=== PATIENT | female | born 1965 | race Caucasian/White ===

== ENCOUNTER 2022-07-12 10:04 | Emergency (ER) | payer OTHER ==
[~2022-07-12] VITALS: Ht 157.5 cm; Wt 93.4 kg
--- OUTSIDE RECORDS SUMMARY | 2022-07-12 10:44 | XMS ---
PreManage Notification: CANDIS MARTINEZ Security Crossing [place] Events No recent Security Events currently on file CRITERIA MET - [facility] - 2 Visits in 30 Days CARE PROVIDERS LELO ALVARADO Physician Change Coordinator Current PHONE: Unknown Kin has no Care Guidelines for this patient. E.D. VISIT COUNT (12 MO.) [address] TOTAL 4 NOTE: Visits indicate total known visits. ED/UCC VISIT TRACKING (12 MO.) 07/12/2022 10:04 [facility] [place] TYPE: Emergency COMPLAINT: - KNEE PAIN 07/03/2022 22:38 [facility] [place] TYPE: Emergency DIAGNOSES: - Pain in right knee - Pain in left knee - Myalgia, unspecified site - WEAKNESS 06/18/2022 11:32 [facility] [place] TYPE: Emergency DIAGNOSES: - LEFT LEG MUSCLE CRAMPS - Other muscle spasm 06/08/2022 12:00 [facility] [place] TYPE: Emergency DIAGNOSES: - L KNEE AND HIP PAIN - Pain in left knee INPATIENT VISIT TRACKING (12 MO.) No inpatient visits to display in this time frame [email or web address]
[2022-07-12] MEDS ORDERED: METOPROLOL TART50 MG PO (11:05)
[2022-07-12] MEDS ORDERED: LISINOPRIL20 MG PO (11:05)
[2022-07-12] MEDS ORDERED: ALLOPURINOL100 MG PO (11:05)
[2022-07-12] MEDS ORDERED: SIMVASTATIN20 MG PO (11:05)
[2022-07-12] MEDS ORDERED: HYDROCHLOROTHIA25 MG PO (11:05)
[2022-07-12] MEDS ORDERED: AMLODIPINE BESY10 MG PO (11:05)
[2022-07-12] MEDS ORDERED: ZANAFLEX4 MG PO (11:06)
[2022-07-12] MEDS ORDERED: TART CHERRY E1000 MG PO (11:06)
[2022-07-12] MEDS ORDERED: DAILY VALUE1 EACH PO (11:07)
[2022-07-12] MEDS ORDERED: MAGNESIUM400 M1 PO (11:07)
[2022-07-12] MEDS ORDERED: OMEGA 3 1,0001 EACH PO (11:08)
[2022-07-12] MEDS ORDERED: VITAMIN D250 MCG PO (11:08)
[2022-07-12] MEDS ORDERED: CALCIUM + D3 E1 EACH PO (11:09)
[2022-07-12] MEDS ORDERED: HYDROCODON-ACE1 EA11 PO (13:41)
== END 2022-07-12 14:19 | disposition home or self-care (01) ==
LOC: ED 10:04
DX: M16.0 Bilateral primary osteoarthritis of hip (principal); M17.0 Bilateral primary osteoarthritis of knee; I10 Essential (primary) hypertension; E78.00 Pure hypercholesterolemia, unspecified; Z79.899 Other long term (current) drug therapy
CPT/HCPCS: 72170; 73560; 96374; 96376; 99283-25; J3010

== ENCOUNTER 2023-12-26 13:09 | Emergency (ER) | payer OTHER ==
[~2023-12-26] VITALS: Ht 157.5 cm; Wt 105.3 kg
[~2023-12-26 13:09] MED LIST: ALLOPURINOL100 MG PO; AMLODIPINE BESY10 MG PO; CALCIUM + D3 E1 EACH PO; DAILY VALUE1 EACH PO; HYDROCHLOROTHIA25 MG PO; HYDROCODON-ACE1 EA11 PO; LISINOPRIL20 MG PO; MAGNESIUM400 M1 PO; METOPROLOL TART50 MG PO; OMEGA 3 1,0001 EACH PO; SIMVASTATIN20 MG PO; TART CHERRY E1000 MG PO; VITAMIN D250 MCG PO; ZANAFLEX4 MG PO
[2023-12-26] MEDS ORDERED: fentaNYL citrate 100 MCG/2 ML VIAL IV PRN (13:30)
[2023-12-26] MEDS ORDERED: KETOROLAC TROMETHAMINE 30 MG/ML VIAL IV ONE (13:30)
[2023-12-26 13:42] LABS: BASOPHILS 0.9 % (0-2); EOSINOPHILS 1.4 % (0-6); HEMATOCRIT 37.8 % (35.0-50.0); HEMOGLOBIN 12.9 g/dL (12.0-18.0); LYMPHOCYTES 9.4 % (24-44); MCH 32.4 (27-36); MCV 95.1 fl (81-99); NEUTROPHILS 80.3 % (39-80); PLATELET COUNT 432 K/uL (140-440); RBC 3.97 M/ul (4.3-5.7); RDW 13.2 (10.5-15.0)
[2023-12-26 13:57] LABS: ALBUMIN 3.8 g/dL (3.4-5.0); ALBUMIN/GLOBULIN RATIO 0.95 (1.1-2.4); ANION GAP 16.9 (7-21); BILIRUBIN, TOTAL 0.6 ng/dL (0.2-1.0); BUN/CREATININE RATIO 23.37 (6.0-28.6); CALCIUM 9.5 mg/dL (8.5-10.1); CREATININE, SERUM 1.54 mg/dL (0.55-1.02); POTASSIUM 3.9 mmol/L (3.5-5.1); PROTEIN, TOTAL 7.8 g/dL (6.4-8.2)
[2023-12-26] MEDS ORDERED: SODIUM CHLORIDE 0.9% 1,000 ML IV ONE (15:00)
[2023-12-26] MEDS ORDERED: Ropivacaine HCl 0.5% 30 ML VIAL ONE (15:11)
[2023-12-26] MEDS ORDERED: LIDOCAINE HCL 2% 5 ML SDV ONE (15:11)
[2023-12-26] MEDS ORDERED: DEXAMETHASONE SOD PHOS 4 MG/ML VIAL ONE (15:11)
[2023-12-26] MEDS ORDERED: SODIUM CHLORIDE 0.9% 20 ML IV ONE (15:11)
[2023-12-26] MEDS ORDERED: dexmedeTOMIDine HCl 200 MCG/2 ML VIAL ONE (15:11)
[2023-12-26] MEDS ORDERED: ondansetron HCL 4 MG/2 ML VIAL IV PRN (15:15)
[2023-12-26] MEDS ORDERED: LIDOCAINE 2% VISCOUS 6 ML SYR TOP ONE (15:15)
[2023-12-26] MEDS ORDERED: MAGNESIUM HYDROXIDE 30 ML UDC PO PRN (15:15)
[2023-12-26] MEDS ORDERED: METOPROLOL TARTRATE 50 MG TAB PO SCH (15:15)
[2023-12-26] MEDS ORDERED: ACETAMINOPHEN 500 MG TAB PO PRN (15:15)
[2023-12-26] MEDS ORDERED: METOPROLOL SUCCINATE 50 MG TABCR PO ONE (15:30)
[2023-12-26] MEDS ORDERED: HYDROCODON-ACE1 EA11 PO (17:55)
[2023-12-26] MEDS ORDERED: HYDROCODONE BIT/ACETAMINOPHEN 5/325 MG 1 TAB HOME.PACK PO ONE (18:00)
[2023-12-26 19:11] VITALS: BP 131/69
[2023-12-26] MEDS ORDERED: ATORVASTATIN 10 MG TAB PO SCH (21:00)
[2023-12-26] MEDS ORDERED: MELATONIN 3 MG TAB PO PRN (21:00)
--- NOTE | 2023-12-27 07:12 | EKG ---
[facility] [address] [place] [address] Signed Sinus tachycardia with premature atrial complexes Low voltage QRS Inferior infarct , age undetermined Possible Anterolateral infarct , age undetermined Abnormal ECG No previous ECGs available Confirmed by London Zamarripa ([id number]) on 12/27/2023 7:12:35 AM Electronically Signed By: LONDON ZAMARRIPA MD 12/27/23711 PATIENT NAME: CANDIS MARTINEZ Electrocardiogram DATE OF : 65 PHYSICIAN: LONDON ZAMARRIPA MD REPORT #: [id number] REPORT IS CONFIDENTIAL AND NOT TO BE RELEASED WITHOUT AUTHORIZATION
[2023-12-27] MEDS ORDERED: lisinopriL 20 MG TAB PO SCH (09:00)
[2023-12-27] MEDS ORDERED: hydroCHLOROthiazide 25 MG TAB PO SCH (09:00)
[2023-12-27] MEDS ORDERED: PHARMACY RENAL DOSE ADJUSTMENT 1 DOSE MISC PO SCH (12:00)
== END 2023-12-26 20:14 | disposition home or self-care (01) ==
LOC: ED 13:09 → MS 15:04 → ED 15:04
PROVIDERS: Emergency Medicine
DX: M16.0 Bilateral primary osteoarthritis of hip (principal); L89.309 Pressure ulcer of unspecified buttock, unspecified stage; L89.899 Pressure ulcer of other site, unspecified stage; S72.012A Unspecified intracapsular fracture of left femur, initial encounter for closed fracture; R00.0 Tachycardia, unspecified; G89.29 Other chronic pain; I10 Essential (primary) hypertension; E78.00 Pure hypercholesterolemia, unspecified; Z79.899 Other long term (current) drug therapy; W19.XXXA Unspecified fall, initial encounter
CPT/HCPCS: 36415; 70450; 71045; 72192; 73502; 73560; 80053; 85025; 93005; 93010; 96374; 96376; 99284-25; A9270; J1100; J1885; J2001; J2795; J3010; J7030

== ENCOUNTER 2023-12-28 19:26 | Inpatient (IN) | payer OTHER ==
[~2023-12-28] VITALS: Ht 160 cm; Wt 105.0 kg
--- OUTSIDE RECORDS SUMMARY | 2023-12-28 19:28 | XMS ---
PreManage Notification: CANDIS MARTINEZ Security Loan Funder Events No recent Security Events currently on file CRITERIA MET - [facility] - 2 Visits in 30 Days CARE PROVIDERS HEATHER GALVEZ Community Health Worker 02/16/2023-Current PHONE: [phone] -Ganesh DMD Dentist: Automatic Paint Sprayer Operator Current PHONE: [phone] LELO ALVARADO Physician Overlock Collar Setter Current PHONE: Unknown [facility]: [facility] Qualified [facility] ([facility]) [facility] PHONE: [phone] Kin has no Care Guidelines for this patient. [place] VISIT COUNT (12 MO.) 2 [facility] TOTAL 3 NOTE: Visits indicate total known visits. ED/UCC VISIT TRACKING (12 MO.) 12/28/2023 19:27 [facility] [place] TYPE: Emergency COMPLAINT: - WEAKNESS 12/26/2023 13:09 [facility] [place] TYPE: Emergency COMPLAINT: - L FEMUR FX 01/22/2023 14:32 [facility] OR TYPE: Emergency COMPLAINT: - UPPER ABD PAIN DIAGNOSES: - UPPER ABD PAIN INPATIENT VISIT TRACKING (12 MO.) 12/26/2023 15:04 [facility] [place] TYPE: Medical Surgical COMPLAINT: - L FEMUR FX [id number]
[2023-12-28] MEDS ORDERED: LACTATED RINGER'S 1,000 ML IV ONE (20:15)
[2023-12-28 20:43] LABS: BASOPHILS 0.6 % (0-2); EOSINOPHILS 0.6 % (0-6); HEMATOCRIT 38.7 % (35.0-50.0); HEMOGLOBIN 12.6 g/dL (12.0-18.0); MCH 31.1 (27-36); MCHC 32.6 g/dl (30-36); MCV 95.3 fl (81-99); NEUTROPHILS 85.8 % (39-80); PLATELET COUNT 441 K/uL (140-440); RBC 4.06 M/ul (4.3-5.7); RDW 13.2 (10.5-15.0)
[2023-12-28 20:54] LABS: BILIRUBIN, URINE NEGATIVE (negative); BLOOD/HGB, URINE TRACE-I (Negative); KETONE, URINE TRACE (Negative); LEUK ESTERASE, URINE NEGATIVE (negative); NITRITE, URINE NEGATIVE (negative); PH, URINE 5.5 (5-7)
[2023-12-28 20:58] LABS: ALBUMIN 3.7 g/dL (3.4-5.0); ALBUMIN/GLOBULIN RATIO 0.88 (1.1-2.4); ANION GAP 19.2 (7-21); BILIRUBIN, TOTAL 0.9 ng/dL (0.2-1.0); CALCIUM 9.9 mg/dL (8.5-10.1); CREATININE, SERUM 1.2 mg/dL (0.55-1.02); POTASSIUM 4.2 mmol/L (3.5-5.1); PROTEIN, TOTAL 7.9 g/dL (6.4-8.2)
[2023-12-28 20:59] LABS: EPITHELIAL CELLS, URINE SQUAMOUS 3+ /lpf (0-1+)
[2023-12-28 21:00] LABS: BACTERIA, URINE RARE /hpf (negative); CASTS, URINE HYALINE 2+ \\lpf; CRYSTALS, URINE NONE SEEN (0-1+); REFLEX CULTURE, URINE No (No)
[2023-12-28 21:01] LABS: LACTIC ACID, BLOOD 1.3 mmol/L (0.4-2.0)
[2023-12-29] VITALS (7 sets, daily range): BP systolic 101–120; BP diastolic 43–73
[2023-12-29] MEDS ORDERED: DAPTOmycin 500 MG/10 ML VIAL IV ONE (00:15)
[2023-12-29] MEDS ORDERED: LACTATED RINGER'S 1,000 ML IV ONE (00:15)
[2023-12-29] MEDS ORDERED: METOPROLOL TARTRATE 5 MG/5 ML VIAL IV ONE (00:30)
[2023-12-29] MEDS ORDERED: ACETAMINOPHEN 325 MG TAB PO PRN ×2 (00:45→11:00)
[2023-12-29] MEDS ORDERED: HYDROmorphone HCL 1 MG/ML SYR IV PRN ×2 (00:45→11:00)
[2023-12-29] MEDS ORDERED: METOPROLOL SUCCINATE 50 MG TABCR PO ONE (00:45)
[2023-12-29] MEDS ORDERED: ondansetron HCL 4 MG/2 ML VIAL IV PRN ×2 (00:45→11:00)
[2023-12-29] MEDS ORDERED: HYDROCODONE/ACETA 5/325 TAB PO PRN ×2 (01:00→11:00)
--- NOTE | 2023-12-29 01:06 | NUR ---
pt ARRIVED TO MS FLOOR, TRANSFERRED TO MS BED VIA 4PA WITH USE OF TRANSFER SHEET. pt A/O, BED ALARM ON FOR SAFETY AND CALL LIGHT IN REACH. pt ORIENTED TO ROOM, 2LNC IN PLACE-NOT CHRONIC PER ED BALAJI BARNES. PRIMARY RN PARVIZ OBTAINING BEDSIDE REPORT.
--- NOTE | 2023-12-29 02:27 | NUR ---
PATIENT ASSESSMENT COMPLETE, SHE CONTINUES TO REPORT PAIN 9/10, SECOND TAB NORCO HAS BEEN ADMINISTERED, ROUNDING ON PATIENT SHE WAS RESTING IN BED EYES CLOSED, RELAXED BODY POSITION, NO MOANING, ALERT TO RN SAYING HER NAME. PATIENT REPORTS SHE IS SAFE AT HOME AND ALL HER NEEDS ARE MET.
--- NOTE | 2023-12-29 04:23 | NUR ---
PATIENT RESTING IN BED EYES CLOSED RESPIRATIONS REGULAR AT 20/MIN, NO DISTRESS NOTED AT THIS TIME.
--- NOTE | 2023-12-29 05:26 | NUR ---
PATIENT ALERT TO NAME, FOR AM ASSESSMENT, LABS, AND V/S. SHE MOANS IN PAIN WITH ANY MOVEMENT OF EXTREMETIES OR BED POSITION CHANGES, REPORTS SHE NEEDS TO VOID, PURWICK IN PLACE. SHE IS S/L AT THIS TIME. SHE HAS SLEPT WELL AFTER ADMIT. V/S STABLE, PATIENT NOW ON ROOM AIR.
[2023-12-29 05:37] LABS: BASOPHILS 1.1 % (0-2); EOSINOPHILS 1.6 % (0-6); HEMATOCRIT 33.5 % (35.0-50.0); HEMOGLOBIN 11.2 g/dL (12.0-18.0); LYMPHOCYTES 13.3 % (24-44); MCH 31.6 (27-36); MCHC 33.4 g/dl (30-36); MCV 94.5 fl (81-99); MONOCYTES 8.1 % (0-12); NEUTROPHILS 75.9 % (39-80); PLATELET COUNT 375 K/uL (140-440); RBC 3.54 M/ul (4.3-5.7); RDW 13.2 (10.5-15.0)
[2023-12-29 05:55] LABS: ALBUMIN/GLOBULIN RATIO 0.86 (1.1-2.4); ANION GAP 12.7 (7-21); BUN/CREATININE RATIO 21.56 (6.0-28.6); CREATININE, SERUM 1.02 mg/dL (0.55-1.02); POTASSIUM 3.7 mmol/L (3.5-5.1); PROTEIN, TOTAL 6.5 g/dL (6.4-8.2)
--- NOTE | 2023-12-29 05:55 | NUR ---
PATIENT AWAKE 93% ON ROOM AIR, PATIENT BACK TO SLEEP ON ROOM AIR DESATURATED TO 87% OXYGEN SATURATION. PATIENT PLACED BACK TO 2L OXYGEN NOW 96% OXYGEN SATURATION. PATIENT ON BEDSIDE PULSE OXIMETRY FOR MONITORING PER ORDERS.
--- NOTE | 2023-12-29 07:05 | NUR ---
REPORT RECIEVED FROM BALAJI JJ. PT LAYING IN BED AND RESPONDS WHEN ADDRESSED. PTs LLE NOTED TO BE RED AND EDEMATOUS COMPARED TO RLE. BRUISING NOTED TO PTs FACE. PT DENIES ANY NEEDS AT THIS TIME. CALL LIGHT IN REACH.
--- NOTE | 2023-12-29 08:20 | NUR ---
IN WITH MANUEL PEDERSEN WITH ANSWER CALL LIGHT. PT REPORTING BEING DONE WITH BED NEAL. BED NEAL REMOVED, AFSHIN-CARE PROVIDED. VOID NOTED. NEW ATTENDS PLACED. NEW PUREWICK PLACED. BARRIER CREAM APPLIED TO GROIND AND PANNUS. PT DENIES ANY OTHER NEEDS FROM THIS RN. MANUEL PEDERSEN STILL IN ROOM. CALL LIGHT IN REACH.
--- NOTE | 2023-12-29 08:45 | NUR ---
RECRUITMENT DIRECTOR AND RN ENTERED PT ROOM TO GET HER OFF OF THE BEDPAN. PT WAS UNABLE TO HAVE A BOWEL MOVEMENT BUT DID URINATE. RECRUITMENT DIRECTOR AND RN TURNED PT SO THAT RECRUITMENT DIRECTOR COULD REMOVE BED NEAL, REMOVE THE BRIEF, AND BEGIN PERICARE. PT DID NOT TOLERATE TURNING WELL. PT VERBALLY WAS YELLING AND GROANING IN PAIN. RECRUITMENT DIRECTOR WAS BALE TO DO PERICARE AND PLACE A NEW BRIEF AND PUREWICK. RN AND RECRUITMENT DIRECTOR REPOSITIONED PT TO HER RIGHT SIDE. PT COMPLAINS OF AN ITCH ON HER BACK, RECRUITMENT DIRECTOR ATTEMPTED TO SCRATCH IT BUT PT SAID SHE WAS UNSUCCESSFUL. RECRUITMENT DIRECTOR RAISED PT HEAD AND PLACED HER BREAKFAST IN FRONT OF HER. PT STATES NO FURTHER COMPLAINTS OTHER THAN SHE IS STILL IN PAIN. CALL LIGHT IS WITHIN REACH
[2023-12-29] MEDS ORDERED: TART CHERRY CA1 EACH PO (09:04)
--- NOTE | 2023-12-29 09:04 | NUR ---
MED REC COMPLETE
--- NOTE | 2023-12-29 09:31 | NUR ---
PATIENT IN BED, ALERT AND ORIENTED. PATIENT DEMOGRAPH[place] [id number] [address] PATIENT LIVES IN SINGLE LEVEL HOME WITH SISTER. THERE ARE STAIRS TO GET INSIDE AND SHE DOES HAVE DIFFICULTY USING THEM. HAS A WALKER, WHEELCHAIR AND SHOWER CHAIR AT HOME. UNABLE TO DRIVE, SISTER ALSO UNABLE TO DRIVE. PATIENT STATES SHE UTILIZES WHEELCHAIR VAN FROM [employer] FOR TRANSPORTATION TO MEDICAL APPOINTMENTS. PATIENT DOES HAVE A PRIMARY PROVIDER, LELO ALVARADO PA-C. PATIENT HAS WOUNDS THAT REQUIRE A WOUND CONSULT. STATES SISTER DOES SHOPPING FOR FOOD. PATIENT RECIEVES FOOD STAMPS. SISTER PAYS UTILITIE AND FOOD. NO ISSUES FINANCIALLY AT THIS TIME. WHEN DISCUSSED THE POSIBILITY OF PLACEMENT, PATIENT AVOIDS EYE CONTACT AND BEGINS CRYING. STATES SHE IS PAINFUL. FLOOR STAFF NOTIFIED. DISCUSSED LACK OF OPEN BEDS IN [facility], PATIENT STATES SHE DOES NOT WANT TO GO FAR [place] OR [place]. INFORMED PATIENT CASE MANAGEMENT WILL RETURN TO DISCUSS PLAN AFTER PT/OT WORK WITH HER.
--- NOTE | 2023-12-29 09:42 | NUR ---
PT REQUESTING PAIN MEDICATION FOR 8/10 PAIN IN LLE AND SHOULDER. PRIMARY NURSE NOTIFIED THAT PRN PAIN MEDICATION WAS GIVEN. PT STATES NO FURTHER NEEDS AT THIS TIME. CALL LIGHT WITHIN REACH.
--- NOTE | 2023-12-29 09:49 | NUR ---
SPOKE WITH STEPHANIE ASHBY AT [facility]. PATIENT HAS NO ANIMAL SKINNER MEDICAID AT THIS TIME AND IF SHE NEEDS SERVICES WILL NEED TO CONTACT [facility] OFFICE IN [facility] [place].
--- NOTE | 2023-12-29 09:52 | NUR ---
IN TO ROUND ON PT. PT SITTING UP IN BED AND RESPONDS WHEN ADDRESSED. PT REPORTING TOILETING NEEDS. MANUEL WADSWORTH IN TO ASSIST WITH PLACEING PT ON BED NEAL. PT NOTED TO YELL OUT IN PAIN WHEN MOVED. PT REPORTING PAIN IN LEFT LEG. PRN PAIN MEDICATION ADMINISTERED PREVIOUSLY. ICE PACK PLACED TO LEFT CALF PER PT REQUEST. CALL LIGHT IN REACH. PT REQUESTING PRIVACY. PT VERBALIZES UNDERSTANDING TO CALL WHEN FINISHED.
--- NOTE | 2023-12-29 10:32 | NUR ---
IN DR. TEE IN TO ROUND ON PT. PT RESTING TOWARDS HER LEFT SIDE IN BED, GRIPPING SIDE RAIL, TV ON. PT CPOX NOTED AT 95% 2L, HR 107. DR TEE HAS DISCUSSION AND LEAVES. 1050: ASSESSMENT COMPLETE. PT LUNG SOUNDS CLEAR, HEART TONES HEARD AND NOTED TACHY. BOWEL TONES ACTIVE. PT GRIMACING AND CRYING OUT FROM MOST TOUCH. PT STATES PAIN IN RIGHT SHOULDER AND RIGHT HIP IS 7/10. REDNESS TO LLE, OUTLINED AND DATED WITH MARKER. PT CRIES OUT TO TOUCH ON LEFT FOOT, LLE BENT AT KNEE WITH FOOT TUCKED UNDER RIGHT CALF. PT DENIES BEING ABLE TO STRAIGHTEN THE LEFT LEG. BRUISING TO FOREHEAD AND EYES. PULSES STRONG AND EQUAL BUE, STRONG RLE AND FAINT IN LLE. MILD, PITTING EDEMA NOTED TO RLE, MODERATE PITTING EDEMA NOTED TO LLE. PT REMOVED FROM BEDPAN, SMEARING NOTED ON GREEN LARRY. PT RESUMES LEFT SIDED LYING. PT STATES NO NEEDS AT THIS TIME, CALL LIGHT IN REACH.
--- NOTE | 2023-12-29 10:45 | NUR ---
IN TO ROUND ON PT. DR. TEE IN ROOM. PT CONTNUES TO REPORT PAIN TO LEFT LEG. ASSESSMENT COMPLETE. LUNG SOUNDS CLEAR. BOWEL TONES ACTIVE. ABD SOFT, NON-TENDER WITH PALPATION. LEFT LEG EDEMA AND REDNESS NOTED, WARM TO TOUCH. LLE OUTLINED PT WILL TOLERATE. PT KEEPS LEFT LEG BENT AND TUCKED, PT WILL NOT STRAIGHTEN LEFT LEG WHEN ASKED. PEDAL PULSE IN LLE PALPABLE, FAINT. RLE PEDAL PULSE PALPABLE, STRONG. ICE PACK TO LEFT CALF REPLACED PER PT REQUEST. TOWEL BETWEEN SKIN AND ICE PACK. BED NEAL REMOVED. PT NOTED TO YELL OUT IN PAIN WITH MOVEMENT. SMEAR BM NOTED, AFSHIN-CARE PROVIDED. PT BACK ON SIDE. PT NOTED TO BITE DOWN ON WASHCLOTH. NEW WASHCLOTH PROVIDED, PT STATES "OH YEAH THAT IS CHOCOLAT PUDDING, I HAD SOME ON MY HAND AND USED THE CLOTH TO WIPE IT OFF." BRUISING NOTED TO PTs FOREHEAD, BILATERAL EYES. REDDENED AREA TO PANNUS AND GROIND. ABRASION NOTED TO RLQ/PANNUS. ABRASION NOTED TO PTs LEFT MEDIAL ANKLE. PT DENIES ANY OTHER NEEDS AT THIS TIME. CALL LIGHT IN REACH.
--- NOTE | 2023-12-29 11:16 | NUR ---
IN TO ADMINISTER PRN PAIN MEDICATION PRIOR TO SKATING RINK MANAGER ARRIVING. PT REPORTING PAIN 02/08. MEDICAITON ADMINISTERED, SEE MAR. IMAGING ARRIVES TO ROOM TO PERFORM ULTRASOUND. NO OTHER NEEDS FROM THIS RN AT THIS TIME. CALL LIGHT IN REACH.
[2023-12-29] MEDS ORDERED: allopurinoL 100 MG TAB PO SCH (11:38)
[2023-12-29] MEDS ORDERED: METOPROLOL TARTRATE 50 MG TAB PO SCH (11:39)
--- NOTE | 2023-12-29 11:51 | NUR ---
ATTEMPTED TO VISIT DURING SPIRITUAL CARE ROUNDS. PT WORKING WITH PHYSICAL THERAPY. DID NOT INTERRUPT. PROVIDED PRAYER.
[2023-12-29] MEDS ORDERED: PHARMACY RENAL DOSE ADJUSTMENT 1 DOSE MISC PO SCH (12:00)
--- NOTE | 2023-12-29 12:12 | NUR ---
IN WITH SN VEELINE TO ROUND ON PT. PT/OT IN ROOM. PT SITTING UP IN BED. PT REPORTING PAIN 3-11/09. MEDICATIONS ADMNINISTERED, SEE MAR. PT LUNCH TRAY PROVIDED. PT DENIES ANY OTHER NEEDS AT THIS TIME. CALL LIGHT IN REACH.
--- NOTE | 2023-12-29 13:30 | NUR ---
IN TO ROUND ON PT. PT SITTING UP IN BED EATING LUNCH. PT DENIES ANY NEEDS AT THIS TIME. CALL LIGHT IN REACH.
--- NOTE | 2023-12-29 14:26 | NUR ---
IN TO ROUND ON PT. PT SITTING UP IN BED. PT RESPONDS WHEN ADDRESSED. PT REPORTING PAIN IN LLE 11/09. PT DENIES ANY PRN PAIN MEDICAITON WHEN OFFERED. ASSESSMENT COMPLETE. LLE REDNESS NOTED, WARM TO TOUCH. PEDAL PULSE PALPABLE, FAINT. PT ON RA WITH O2 SATS AT 93-94%. PT DENIES ANY OTHER NEEDS AT THIS TIME. CALL LIGHT IN REACH.
--- NOTE | 2023-12-29 15:09 | NUR ---
IN CPOX ALARMING. PT NOTED TO BE SEMI-FOWLERS IN BED, RESTING ON LEFT SIDE, HEAD AGAINST PILLOW ON BED FRAME. PT EYES CLOSED, BREATHING EVEN AND UNLABORED WITH SNORE NOTED. CPOX NOTED TO BE 88% RA. PT HAS NC IN PLACE ALREADY, O2 INCEASED TO 2L AND CPOX INCREASED TO 96%. PT STILL RESTING WITH EYES CLOSED, SNORING. CALL LIGHT IN REACH.
--- NOTE | 2023-12-29 15:43 | NUR ---
IN TO ROUND ON PT WOUNDCARE CONSULT IS HERE. PT PREMEDICATED WITH PRN PAIN MEDICATION. PT REPORTING PAIN 4/10 IN LLE. PT REPORTING TOILETING NEEDS. BED NEAL PLACED. NO VOID OR BM NOTED. 2 BULLION WEIGHER'S, 3 RN's AND ONE SN IN ROOM ATTEMPTING TO ASSIST PT TO SERA-STEADY TO GET PT UP FOR PICTURE FOR WOUND CONSULT AND ONTO SHOWER CHAIR. GATE BELT USED. PER WOUND CONSULT, "KEEP IT CLEAN AND DRY." 1640 PT UP IN SHOWER CHAIR. NEW LINENS APPLIED TO BED. MANUEL ELLIS AND MANUEL PEDERSEN ASSISTING PT WITH SHOWER. NO OTHER NEEDS FROM THIS RN AT THIS TIME.
--- NOTE | 2023-12-29 16:43 | NUR ---
ORDER RECEIVED FOR WOUND CONSULT ON THIS PATIENT. PATIENT IS LYING ON HER LEFT SIDE, WITH HER LEFT LEG TUCKED AND HER LEFT ARM TUCKED. PATIENT REPORTS THIS IS THE ONLY WAY SHE CAN LAY THAT IS COMFORTABLE. PATIENT REPORTS SHE IS INDEPENDENT AT HOME, WHERE SHE LIVES WITH HER SISTER. SHE REPORTS SHE SLEEPS, SITTING, UPRIGHT IN A SOFA WITH HER FEET DEPENDENT. PATIENT REPORTS SHE TRANSFERS, INDEPENDENTLY, TO A WHEELCHAIR TO WHEEL HERSELF TO THE BATHROOM AND THEN USES A WALKER TO TRANSFER FROM THE WHEELCHAIR, TO THE BATHROOM. PATIENT DENIES SHE WAS ABLE TO DO THIS TRANSFER WHEN SHE LEFT THE ER THE 1ST TIME. SHE VERBALIZES UNDERSTANDING OF NEEDING TO BE IN A HOME WHERE HER NEEDS ARE MET. PATIENT IS COMPLAINING OF ITCHING WHILE WE ARE TALKING. I REPORT THE DILAUDID PAIN MEDICINE THAT WAS GIVEN UPON OUR ARRIVAL IS LIKELY RESPONSIBLE. PATIENT REPORTS "OR THAT I HAVEN'T HAD A BATH IN A VERY LONG TIME." PATIENT ASKED IF SHE WOULD LIKE A SHOWER AND SHE OPENS HER EYES AND REPORTS "YES!" PLAN TO TRANSFER PATIENT FROM THE BED, TO THE SHOWER CHAIR IS DISCUSSED WITH PATIENT AND SHE VERBALIZES UNDERSTANDING AND IS WILLING TO PARTICPATE IN THE TRANSFER. PATIENT COMPLAINS OF PAIN WITH ANY AND ALL MOVEMENT. SHE PARTICIPATES WITH MOVING WITH A LOT OF POSITIVE REINFORCEMENT AND ALLOWING PATIENT TO TAKE EXTRA TIME. HOVERMAT IS UNDER PATIENT AND 6 STAFF ARE ABLE TO REPOSITION PATIENT AT THE EDGE OF THE BED BY USING THE HOVERMAT. PATIENT TOLERATES THIS POSITION CHANGE WELL. HER LEFT LEG REMAINS TUCKED UNDER THE BED. PATIENT IS ENCOURAGED TO STRAIGHTEN THIS LEG AND SHE IS ABLE TO DO THAT. SHE ALLOWS STAFF TO STRAIGHTEN THE LEFT LEG IN PROPER POSITION ON THE CHICHI-STEDY. GAIT BELT IS USED AND PATIENT IS ABLE TO ASSIST 4 STAFF WITH STANDING ONTO THE CHICHI-STEDY.SHE IS THEN TRANSFERRED TO THE ROLLING SHOWER CHAIR AND SHE TOLERATES THIS QUITE WELL. MANAGER GAS, PHOEBE, IS ABLE TO VISUALIZE PATIENT'S BUTTOCK AND PERINEUM WHILE PATIENT IS STANDING IN THE CHICHI-STEDY. WOUND ON PATIENT'S LEFT LOWER BUTTOCK APPEARS TO BE A SHEER VERSUS PINCH WOUND. PATIENT DENIES PAIN AT THIS SITE. THERE IS PURPLE COLORING NOTED TO PATIENT'S PERINEAL AREA. PATIENT DOES HAVE A PUREWICK IN PLACE; HOWEVER, IT DOES NOT APPEAR TO BE PROPERLY PLACED IT IS NOT DRAINING MUCH URINE. THIS MANAGER GAS RECOMMENDS OFF LOADING TO THE LEFT SIDE, REGULARLY BATHING AND KEEPING HER PERINEUM AREA DRY FOR THIS WOUNDED AREA. CONTINUE APPLYING ZINC PASTE/NYSTATIN POWDER TO PERINEUM AREA. REDNESS HAS DISSIPATED SINCE INITIAL ADMIT PHOTOGRAPHS WERE TAKEN. PATIENT IS BEING SHOWERED BY CNAS. REPORT GIVEN TO JULIO, CHARGE NURSE AND RG, PRIMARY RN.
--- NOTE | 2023-12-29 16:49 | NUR ---
IMAGING HERE TO TAKE IMAGE OF PTs RIGHT SHOULDER.
--- NOTE | 2023-12-29 17:20 | NUR ---
IN WITH SN EVELINE, MANUEL ELLIS AND MANUEL PEDERSEN TO GET PT FROM SERA-STEADY TO BED. PT IN BED. LLE ELEVATED ON PILLOW. PT PLACED PILLOW UNDER PTs LEFT SIDE IN ATTEMPT TO GET PT TO LAY ON RIGHT SIDE. BARRIER CREAM APPLIED TO AFSHIN-AREA, PANNUS, GROIN AND BACK. NEW ATTENDS PLACED. BRUISING NOTED TO PTs LEFT UPPER BACK, LEFT POSTERIOR ELBOW. REDNESS TO GROIN AND PANNUS. BRUISING TO FOREHEAD AND BILATERAL EYES. MANUEL ELLIS AND MANUEL PEDERSEN REMAIN IN ROOM. NO OTHER NEEDS REPORTED AT THIS TIME. CALL LIGHT IN REACH.
--- NOTE | 2023-12-29 17:31 | NUR ---
GUEST SPECIALIST AND RNS ASSISTED PT FROM THE BED TO A SHOWER CHAIR WITH THE CHICHI STEADY. PT WAS VERBALLY SHOWING SIGNS OF PAIN WITH MOVEMENT. PT NEEDED 3-4PA WITH A GAIT BELT AND THE CHICHI STEADY. PT WAS BROUGHT BACK TO BED AFTER THE SHOWER. PT WAS GIVEN A CLEAN BRIEF, NEW CREAM IN HER AFSHIN AREA, GIVEN AFSHIN CARE, AND A NEW PUREWICK WAS PLACED. PT LEFT LEG IS ELEVATED. PT WAS REPOSITIONED IN BED TO WHERE SHE IS COMFORTABLE SHE CAN BE. PT STATED THAT SHE DID NOT WANT THE DINNER THAT WAS PROVIDED TO HER AND THAT SHE DOESNT LIKE WHAT WAS GIVEN. GUEST SPECIALIST SAID SHE WOULD WORK ON GETTING HER SOMETHING DIFFERENT FOR DINNER. PT CALL LIGHT IS IN REACH, TELE WAS PUT BACK ON, AND CPOX IS ON. NO FURTHER COMPLAINTS OR CONCERNS
[2023-12-29] MEDS ORDERED: LACTATED RINGER'S 1,000 ML IV SCH (18:00)
--- NOTE | 2023-12-29 18:00 | NUR ---
WENT IN TO CHECK ON PATIENT. PATIENT SAID SHE WAS COLD. SO WENT AND GOT HER TWO WARM BLANKETS. ONE FOR HER RIGHT SHOULDER AND FOR HER LEGS.
--- NOTE | 2023-12-29 18:05 | NUR ---
IN TO ROUND ON PT. PT SEMI-FOWLERS IN BED AND RESPONDS WHEN ADDRESSED. MANUEL ELLIS IN OBTAINING VITALS. PT REPORTING PAIN /. ICE PACK APPLIED TO PTs LLE. LLE ELEVATED ON PILLOW. IV FLUIDS STARTED, SEE SEP. PT DENIES ANY OTHER NEEDS AT THIS TIME. CALL LIGHT IN REACH. MANUEL ELLIS REMAINS IN ROOM.
--- NOTE | 2023-12-29 19:41 | NUR ---
REPORT RECIEVED FROM DAY SHIFT RN. MICHEL RESTING IN BED ON BACK WITH EYES CLOSED. REPSPIRATIONS EVEN AND UNLABORED. CALL LIGHT IN REACH.
--- NOTE | 2023-12-29 20:53 | NUR ---
CALL LIGHT ANSWERED. PT STATES SHE THINKS SHE NEEDS TO PEE. PT REMINDED THAT SHE HAS A PUREWICK IN PLACE. FITTER / WELDER OBTAINED VITALS. NO NEW I&O NOTED. PT STATES NO FURTHER NEEDS AT THIS TIME. CALL LIGHT WITHIN REACH.
[2023-12-29] MEDS ORDERED: DAPTOmycin 500 MG/10 ML VIAL IV SCH (21:00)
[2023-12-29] MEDS ORDERED: MELATONIN 3 MG TAB PO PRN (21:00)
--- NOTE | 2023-12-29 21:26 | NUR ---
PATIENT RESTING IN BED. SCHEDULED MEDICATION ADMINSTERED. IV ABX ADMINISTERED PER ORDER. IV FLUSHES WNL. NO FURTHER NEEDS. CALL LIGHT IN REACH.
--- NOTE | 2023-12-29 21:51 | NUR ---
pt HEARD CRYING FROM RN STATION, THIS RN IN ROOM TO ASSESS. pt VERY EMOTIONAL AND STATES WHEN ASKED WHAT'S WRONG, "MY LEGS HURT". pt RESTING IN BED, BITING WASH CLOTH THEN ASKS FOR HER TV REMOTE. pt EDUCATED PRIMARY RN TO RETURN WITH MACHINE CARTON MARKER AND ASSIST pt WITH REPOSITONING AND CHECK ON PUREWICK PLACEMENT BEFORE BED pt STATES, "IM WET". CALL LIGHT IN REACH ALONG WITH PERSONAL BELONGINGS.
--- NOTE | 2023-12-29 22:24 | NUR ---
SIGN LANGUAGE INSTRUCTOR AND RN HCECKED PT ATTENDS AND PURE WICK. PT WAS DRY. SIGN LANGUAGE INSTRUCTOR GOT A COLD WASH CLOTHE PT REQUESTED. PT STATES NO FURTHER NEEDS AT THIS TIME. RN REMAINS IN ROOM. CALL LIGHT WITHIN REACH.
--- NOTE | 2023-12-29 22:37 | NUR ---
PATIENT REPORTS 5/10 L HIP PAIN. PRN PAIN MEDICATION ADMINISTERED. PATIENT TEARFUL STATING THAT SHE IS VERY PAINFUL. THIS RN ASKED PATIENT HOW SHE GETS AROUND AT HOME, SHE STATES "I GET AROUND WITH A WHEELCHAIR". PATIENT HAS NO FURTHER NEEDS AT THIS TIME. LLE ELEVATED WITH PILLOW. CALL LIGHT IN REACH.
--- NOTE | 2023-12-30 00:09 | NUR ---
PATIENT RESTING IN BED ON BACK WITH EYES CLOSED. RESPIRATIONS EVEN AND UNLABORED. CALL LIGHT IN REACH.
--- NOTE | 2023-12-30 02:03 | NUR ---
PATIENT RESTING IN BED IN BACK WITH EYES CLOSED. RESPIRATIONS EVEN AND UNLABORED. CALL LIGHT IN REACH.
[2023-12-30 02:26] VITALS: BP 121/73
--- NOTE | 2023-12-30 02:42 | NUR ---
INDUSTRIAL SECURITY ANALYST AND RN ENTERED ROOM AND OBTIANED VITALS AND RECORDED I&O. INDUSTRIAL SECURITY ANALYST AND RN CHANGED PT PUREWICK. PT ATTENDS AND CHUCKS PADS STILL DRY. INDUSTRIAL SECURITY ANALYST GAVE PT WARM BLANKET REQUESTED BY PT. PT STATES NO FURTHER NEEDS AT THIS TIME. CALL LIGHT PLACED WITHIN REACH.
--- NOTE | 2023-12-30 02:53 | NUR ---
ASSESSMENT COMPLETE. PATIENT LLE REDNESS REMAINS WITHIN PREVIOUS OUTLINE. LLE ELEVATED ON PILLOW. STRONG BLE PULSES PRESENT. NO FURTHER NEEDS. CALL LIGHT IN REACH.
--- NOTE | 2023-12-30 04:21 | NUR ---
iv pump alarming, issue resolved. iv fluids infusing as directed and iv site wnl. call light in reach, no additional needs or concerns verbalzied when asked.
[2023-12-30 05:27] LABS: BASOPHILS 0.7 % (0-2); EOSINOPHILS 3.3 % (0-6); HEMATOCRIT 32.6 % (35.0-50.0); HEMOGLOBIN 10.9 g/dL (12.0-18.0); MCH 31.8 (27-36); MCHC 33.3 g/dl (30-36); MCV 95.5 fl (81-99); MONOCYTES 9.1 % (0-12); NEUTROPHILS 76.9 % (39-80); PLATELET COUNT 329 K/uL (140-440); RBC 3.42 M/ul (4.3-5.7); RDW 13.6 (10.5-15.0)
[2023-12-30 05:42] VITALS: BP 111/70
[2023-12-30 05:44] LABS: ALBUMIN 2.8 g/dL (3.4-5.0); ALBUMIN/GLOBULIN RATIO 0.8 (1.1-2.4); ANION GAP 13.9 (7-21); BILIRUBIN, TOTAL 0.6 ng/dL (0.2-1.0); BUN/CREATININE RATIO 22.22 (6.0-28.6); CALCIUM 8.7 mg/dL (8.5-10.1); CREATININE, SERUM 0.99 mg/dL (0.55-1.02); MAGNESIUM 1.7 mg/dL (1.8-2.4); PHOSPHORUS, INORGANIC 3.1 mg/dL (2.5-4.9); POTASSIUM 3.9 mmol/L (3.5-5.1); PROTEIN, TOTAL 6.3 g/dL (6.4-8.2)
--- NOTE | 2023-12-30 05:46 | NUR ---
CALL LIGHT ANSWERED. PT WANTED A WARM BLANKET. LITHOGRAPHIC PRESS OPERATOR BROUGHT WARM BLANKET AND OBTAINED VITALS AND I&O. PT STATES NO FURTHER NEEDS AT THIS TIME. CALL LIGHT PLACED WITHIN REACH.
--- NOTE | 2023-12-30 06:10 | NUR ---
ROUNDING ON PATIENT. PATIENT REPORTS 5/10 BILAT HIP PAIN. PRN PAIN MEDICATION ADMINISTERED. NO FURTHER NEEDS. CALL LIGHT IN REACH.
--- NOTE | 2023-12-30 07:26 | NUR ---
REPORT RECEIVED FR LUIS F RAMIREZ RN, ALL QUESTIONS ANSWERED. IN ROOM TO TURN PT, BRIEF AND PUREWICK CHANGED. AFSHIN CARE COMPLETE. PT RESPOSTIONED FROM BREAKFAST. PT PAINFUL DURING MOVEMENT, CRYING AND BITING TOWEL. PROVIDED REASSURANCE. PT DENIES FURTHER NEEDS AT THIS TIME. CALL LIGHT IN REACH.
[2023-12-30] MEDS ORDERED: MAGNESIUM SULFATE 2 GM/50 ML BAG IV ONE (08:15)
--- NOTE | 2023-12-30 08:15 | NUR ---
skin isaiah ferguson bed ordered, conf # [phone]
[2023-12-30] MEDS ORDERED: ENOXAPARIN SODIUM 40 MG/0.4 ML SYR SUB-Q SCH (09:00)
--- NOTE | 2023-12-30 10:43 | NUR ---
THE HEALTH AND WELLNESS COORDINATOR ENTERED THE PATIENT'S ROOM TO DISCUSS THE DISCHARGE PLAN. THE PATIENT IS UNABLE TO HAVE A DISCUSSION AT THIS TIME SINCE PATIENT IS BUSY TAKING MEDICATIONS, THE DC HUMAN RESOURCES SUPERVISOR WILL CHECK BACK LATER TODAY,
[2023-12-30 10:51] VITALS: BP 131/75
--- NOTE | 2023-12-30 11:00 | NUR ---
ASSESSMENT COMPLETE. PT AWAKE IN BED. PT STATES SHE HAS PAIN, WILL NOT RATE, STATES PAIN IS TOLERABLE UNTIL NEXT DOSE AVAILABLE. REDNESS TO LLE WITHIN PREVIOUS OUTLINE. WARM TO TOUCH. BLISTERS NOTED TO CENTER BACK, INTACT. REDDNESS TO GROIN, SKIN CARE AND BARRIER CREAM APPLIED. PUREWICK IN PLACE. PT DENIES FURTHER NEEDS AT THIS TIME. CALL LIGHT IN REACH.
[2023-12-30] MEDS ORDERED: MAGNESIUM SULFATE 50 ML IV ONE (11:11)
--- NOTE | 2023-12-30 11:14 | NUR ---
SPOKE TO THE PATIENT ABOUT HER DISCHARGE PLAN.THE PATIENT STATES SHE WILL BE GOING HOME WITH HER SISTER WHEN SHE IS DISCHARGED. THE PATIENT WILL HAVE HER SISTER COME TO THE HOSPITAL THIS AFTERNOON TO DISCUSS A SAFE DISCHARGE PLAN. THE PATIENT IS IN AGGREEMENT.
[2023-12-30] MEDS ORDERED: LORazepam 1 MG TAB PO PRN (11:30)
--- NOTE | 2023-12-30 12:08 | NUR ---
PT C/O 01/09 LEFT LOWER EXTREMITY PAIN, GIVEN PRN PAIN MEDICATION, SEE EMAR. PT DENIES FURTHER NEEDS AT THIS TIME. CALL LIGHT IN REACH.
--- NOTE | 2023-12-30 12:11 | NUR ---
UR CLINICAL REVIEW: [facility] [place] CELLULITIS GUIDELINE EOCCO MODA MEETS INPT CRITERIA INPT 12/29/23 @ 0047 ORDER MATCHES STATUS CLINIC[facility] FAXED FOR AUTH PLAN SNF AT [place] NEXT REVIEW 01/02/24
--- NOTE | 2023-12-30 13:20 | NUR ---
PT TO MRI
--- NOTE | 2023-12-30 13:45 | NUR ---
PT RETURNS FROM MRI, PLACED ON SKIN IQ BED. PT DENIES FURTHER NEEDS AT THIS TIME. CALL LIGHT IN REACH.
[2023-12-30 14:18] VITALS: BP 131/75
--- NOTE | 2023-12-30 14:33 | NUR ---
VISITED DURING SPIRITUAL CARE ROUNDS. PT APPEARED SLEEPY BUT DENIED DESIRE FOR NAP. LISTENED EMPATHETICALLY PT TALKED OF INTERESTS AND OF CHALLENGES OF CURRENT LIVING SITUATION. PROVIDED SUPPORTIVE PRESENCE, PRAYER. PT EXPRESSED APPRECIATION.
--- NOTE | 2023-12-30 15:54 | NUR ---
SPOKE TO PATIENT AND HER SISTER ABOUT THE DC PLAN. PATIENT PLANS TO GO HOME WITH HER SISTER. PATIENT STATES SHE WAS TOLD SHE COULD STAY AT THE HOSPITAL FOR 4 DAYS. PATIENT REMINDED THAT THE DOCTOR WILL DECIDE HOW LONG THE PATIENT WILL BE IN THE HOSPITAL AND WHEN THE PATIENT IS MEDICALLY STABLE FOR DISCHARGE. PATIENT DOES NOT WHAT SNF PLACEMENT.
[2023-12-30 18:24] VITALS: BP 130/66
--- NOTE | 2023-12-30 18:37 | NUR ---
pt c/o 6/10 BLE PAIN, GIVEN PRN MEDICATION, SEE EMAR.
--- NOTE | 2023-12-30 19:10 | NUR ---
CHANGED PT KERI @1840 AND DID [facility]ARE. WITH ANOTHER ANSWERING SERVICE AGENT'S HELP. GOT PT A WARM BLANKET AND PT DIDNT NEED ANYTHING ELSE CALL LIGHT WITHIN REACH.
--- NOTE | 2023-12-30 19:15 | NUR ---
REPORT RECEIVED FROM ELMO CARPIO. pt RESTING IN BED. BOARD UPDATED. CALL LIGHT WITHIN REACH.
[2023-12-30 21:19] VITALS: BP 138/75
--- NOTE | 2023-12-30 21:30 | NUR ---
ASSESSMENT AND VITAL SIGNS DONE. SCHEDULED MEDICATION ADMINISTERED, SEE MAR. IV ASSESSED, WNL. IV ABX INFUSING, SEE MAR. pt C/O 11/09 PAIN, BUT DENIES PAIN MEDICATION AT THIS TIME. PURE WICK CHECKED. BRIEF IS DRY. pt DENIES ANY OTHER NEEDS AT THIS TIME. CALL LIGHT WITHIN REACH.
[2023-12-31] VITALS (8 sets, daily range): BP systolic 115–145; BP diastolic 63–86
--- NOTE | 2023-12-31 00:35 | NUR ---
IN ROOM TO DO VITAL SIGNS AND ASSESSMENT. pt C/O 01/09 PAIN. PRN PAIN MEDICATION ADMINISTERED, SEE MAR. REDNESS WITHIN OUTLINE. CMS INTACT. pt DENIES ANY OTHER NEEDS AT THIS TIME. CALL LIGHT WITHIN REACH.
--- NOTE | 2023-12-31 02:24 | NUR ---
IV ALARMING. IVF BAG EMPTY. NEW BAG INFUSING PER ORDER, SEE MAR. PT RESTING WITH EYES CLOSED. RR EVEN AND UNLABORED.
--- NOTE | 2023-12-31 04:21 | NUR ---
pt RESTING IN BED WITH EYES CLOSED. RR EVEN AND UNLABORED. CALL LIGHT WITHIN REACH.
--- NOTE | 2023-12-31 05:51 | NUR ---
NO AM LABS ORDERED, DR TEE ON PHONE. TELEPHONE ORDER READ BACK FOR AM CBC, CMP, AND MAG. PRIMARY RN AWARE AND UPDATED.
[2023-12-31 06:05] LABS: BASOPHILS 0.7 % (0-2); EOSINOPHILS 3.8 % (0-6); HEMATOCRIT 34.5 % (35.0-50.0); HEMOGLOBIN 11.3 g/dL (12.0-18.0); LYMPHOCYTES 9.2 % (24-44); MCH 31.5 (27-36); MCHC 32.7 g/dl (30-36); MCV 96.3 fl (81-99); MONOCYTES 7.7 % (0-12); NEUTROPHILS 78.6 % (39-80); PLATELET COUNT 331 K/uL (140-440); RBC 3.58 M/ul (4.3-5.7); RDW 13.2 (10.5-15.0)
[2023-12-31 06:20] LABS: ALBUMIN 2.6 g/dL (3.4-5.0); ALBUMIN/GLOBULIN RATIO 0.67 (1.1-2.4); ANION GAP 12.2 (7-21); BILIRUBIN, TOTAL 0.5 ng/dL (0.2-1.0); BUN/CREATININE RATIO 17.89 (6.0-28.6); CALCIUM 8.8 mg/dL (8.5-10.1); CREATININE, SERUM 0.95 mg/dL (0.55-1.02); MAGNESIUM 1.9 mg/dL (1.8-2.4); POTASSIUM 4.2 mmol/L (3.5-5.1); PROTEIN, TOTAL 6.5 g/dL (6.4-8.2)
[2023-12-31] MEDS ORDERED: MAGNESIUM CHLORIDE 64 MG TABCR PO ONE (07:45)
--- NOTE | 2023-12-31 09:00 | NUR ---
Patient awake, alert and oriented x4. Patient reports she slept well last night. IV fluids infusing at this time. No current needs, personal supplies and call light within reach.
--- NOTE | 2023-12-31 09:05 | NUR ---
MED REC COMPLETE.
--- NOTE | 2023-12-31 09:08 | NUR ---
THE PATIENT IS ON THE PHONE TALKING TO HER SISTER.THE PLANTING MACHINE OPERATOR WILL RETURN LATER TO DISCUSS THE DISCHARGE PLAN.
--- NOTE | 2023-12-31 10:31 | NUR ---
SPOKE TO PATIENT ABOUT THE DISCARGE PLAN. PATIENT IS SITTING ON SIDE OF BED WORKING OUT WITH OT AND CRYING BECAUSE OF THE PAIN. DR. TEE AND OT ARE IN THE ROOM. THE PUMPER GAUGER DISCUSSED WITH THE PATIENT THE NEED FOR THE PATIENT TO GO TO REHAB. FOR SNF. PATIENT AGREES WITH PLACEMENT AND WANTS TO GO TO [facility] IN [place]. REFERRAL WAS SENT TO SNF. PATIENT REFUSES [facility], AND ANY [facility]. PATIENT IS THINKING ABOUT [facility].
--- NOTE | 2023-12-31 11:28 | NUR ---
PATIENT HAS DECIDED TO ALSO HAVE A REFERRAL SENT TO [facility]. A RERREAL HAS BEEN SENT.
--- NOTE | 2023-12-31 13:52 | NUR ---
THE PATIENT AGREES TO SNF AT THIS TIME,BUT IS RELUCTANT ABOUT GOINING TO [place] FOR PLACEMENT. SPOKE TO KELLI AT [facility] AND THERE ARE NO BEDS UNTIL NEXT WEEK SOMETIME. ALSO A MESSAGE WAS LEFT FOR [facility]. TO CALL PROPOSAL REVIEW ANALYST. THE MD WRITES IN HIS NOTES THAT THE PATIENT WILL BE HERE 1-2 MORE DAYS. [facility] ([place], [place]) HAS BEDS PER [facility], THE BLADDER TIER WILL DISCUSS POSSIBLE PLACEMENT AGAIN AT [facility] AT THE [place] IN [place] IF NOTHING ELSE IS AVAILABLE.
--- NOTE | 2023-12-31 14:22 | NUR ---
PT CALL LIGHT ON, REQUESTING SOMETHING FOR PAIN. CURRENTLY RATING PAIN IN HIPS/KNEES 01/09, PRN NORCO GIVEN, SEE MAR. FRESH ICE WATER PROVIDED TO PATIENT, REQUESTED BLANKETS TO BE STRAIGHTENED OUT AND HEATER SLIGHTLY RAISED. ALL PATIENT CARE NEEDS MET AT THIS TIME, DENIES FURTHER NEEDS. CALL LIGHT WITHIN REACH.
--- NOTE | 2023-12-31 15:01 | NUR ---
REPORT RECIEVED FROM BALAJI BELLE. PT RESTING IN BED SEMI-FOWLERS. EYES CLOSED, RR EVEN AND UNLBOARED. NO NEEDS IDENTIFIED AT THIS TIME. CALL LIGHT IN REACH.
--- NOTE | 2023-12-31 15:06 | NUR ---
Patient resting in bed, eyes closed, respirations even and non labored. Patient has no notable distress. IV site patent, fluids infusing per provider order. Personal supplies and call light within reach. bed alarm intact.
--- NOTE | 2023-12-31 15:36 | NUR ---
PATIENT IS SLEEPING. JUNIOR ART DIRECTOR IS UNABLE TO ASK PATIENT TO CONSIDER [facility] [place] FOR [facility]ACEMENT.THE JUNIOR ART DIRECTOR WILL SEND A REFERRAL IN CASE THE PATIENT'S 1ST AND 2ND CHOICES ARE NOT AVAILABLE.
[2023-12-31] MEDS ORDERED: diphenhydrAMINE 2% CREAM TUBE TOP PRN (16:15)
--- NOTE | 2023-12-31 18:08 | NUR ---
Admin dilaudid 1MG IV for reports of 7/10 hip/back pain.
[2023-12-31] MEDS ORDERED: METOPROLOL TARTRATE 5 MG/5 ML VIAL IV PRN (19:30)
--- NOTE | 2023-12-31 19:38 | NUR ---
REPORT RECEIVED FROM RG CARPIO. pt RESTING IN THE BED. BOARD UPDATED. CALL LIGHT WITHIN REACH.
--- NOTE | 2023-12-31 20:14 | NUR ---
LAST SCOURER AND RN ENTERED ROOM AND OBTAINED VITALS AND I&O. PT PUREWICK CHANGED. PT STATES NO FURTHER NEEDS AT THIS TIME. CALL LIGHT WITHIN REACH. RN REMAINS IN ROOM.
--- NOTE | 2023-12-31 20:20 | NUR ---
ASSESSMENT AND VITAL SIGNS DONE. NEW PURE WICK PLACED. REDNESS ON LEFT LEG WITHIN OUTLINE. ICE WATER REFRESHED. IV ASSESSED, WNL. pt DENIES ANY PAIN AT THIS MOMENT AND ANY NEEDS AT THIS TIME. CALL LIGHT WITHIN REACH.
[2023-12-31] MEDS ORDERED: ARTIFICIAL TEARS 15 ML BTL OU PRN (22:45)
--- NOTE | 2023-12-31 23:30 | NUR ---
pt C/O 01/09 PAIN. PRN PAIN MEDICATION ADMINISTERED. pt CALLED AND WANTED HER OWN EYE DROP. NIO FOR EYE DROPS PUT IN. pt ALSO C/O OF IV LEAKING. THIS RN LOOKED AT IV AND REDRESSED IT AND TIGHTENED THE HUB. IV WAS NOT LEAKING WHEN THIS RN FLUSHED IT. pt DENIES ANY OTHER NEEDS AT THIS TIME. CALL LIGHT WITHIN REACH.
[2024-01-01] VITALS (7 sets, daily range): BP systolic 116–142; BP diastolic 68–88
--- NOTE | 2024-01-01 01:18 | NUR ---
pt RESTING IN THE BED WITH EYES CLOSED. RR EVEN AND UNLABORED. CALL LIGHT WITHIN REACH.
--- NOTE | 2024-01-01 03:17 | NUR ---
pt RESTING IN THE WITH EYES CLOSED. RR EVEN AND UNLABORED. CALL LIGHT WITHIN REACH.
--- NOTE | 2024-01-01 04:00 | NUR ---
pt CALLED AND C/O OF 02/08 PAIN. PRN PAIN MEDICATION ADMINISTERED. pt DENIES ANY OTHER NEEDS AT THIS TIME. CALL LIGHT WITHIN REACH.
--- NOTE | 2024-01-01 05:10 | NUR ---
ASSESSMENT AND VITAL SIGNS DONE. PT STATES HER PAIN IS BETTER AFTER THE PRN PAIN MED THAT SHE RECEIVED. pt DENIES ANY OTHER NEEDS AT THIS TIME. CALL LIGHT LIGHT LIGHT WITHIN REACH.
[2024-01-01 05:27] LABS: BASOPHILS 0.9 % (0-2); EOSINOPHILS 4.8 % (0-6); HEMATOCRIT 33.7 % (35.0-50.0); LYMPHOCYTES 8.3 % (24-44); MCH 31.1 (27-36); MCHC 32.8 g/dl (30-36); MONOCYTES 7.5 % (0-12); NEUTROPHILS 78.5 % (39-80); PLATELET COUNT 323 K/uL (140-440); RBC 3.55 M/ul (4.3-5.7)
[2024-01-01 05:41] LABS: ANION GAP 12.2 (7-21); BUN/CREATININE RATIO 20.23 (6.0-28.6); CALCIUM 9.1 mg/dL (8.5-10.1); CREATININE, SERUM 0.84 mg/dL (0.55-1.02); MAGNESIUM 1.7 mg/dL (1.8-2.4); POTASSIUM 4.2 mmol/L (3.5-5.1)
--- NOTE | 2024-01-01 07:22 | NUR ---
REPORT RECEIVED FROM WAREHOUSE STOCKER RN JAZMINE. PATIENT IS SITTING UPRIGHT IN BED AT THIS TIME AND IS WATCHING TV. CALL LIGHT AND PERSONAL BELONGINGS ARE WITHIN REACH.
--- NOTE | 2024-01-01 07:26 | NUR ---
REPORT RECEIVED FROM DONOR RELATIONS MANAGER BALAJI LUCERO. PATIENT IS SITTING UPRIGHT IN BED WITH EYES CLOSED AND RESPIRATIONS ARE EVEN AND UNLABORED. CALL LIGHT AND PERSONAL BELONGINGS ARE WITHIN REACH.
[2024-01-01] MEDS ORDERED: MAGNESIUM CHLORIDE 64 MG TABCR PO ONE (07:45)
--- NOTE | 2024-01-01 08:55 | NUR ---
0900 MEDICATIONS AND PRN PAIN MEDICATION ADMINISTERED PER THE EMAR. FULL ASSESSMENT COMPLETE AND DOCUMENTED IN THE CHART. PATIENT IS ALERT AND ORIENTED TIMES FOUR. LUNG SOUNDS ARE CLEAR IN ALL LUNG JAMES BILATERALLY. PATIENT IS ON ROOM AIR. CARDIAC WITH NORMAL S1 AND S2 ON AUSCULTATION, PATIENT IS ON TELEMETRY NUMBER 4 IN SINUS TACHYCARDIA. HR IS 101. RADIAL PULSES ARE STRONG BILATERALLY. SENSATION INTACT WITH NO COMPLAINTS OF NUMBNESS AND TINGLING AT THIS TIME. BOWEL TONES ARE ACTIVE IN ALL FOUR QUADRANTS. PATIENT HAS PAIN IN BILATERAL HIPS RATED 6/10. IV SITE FLUSHED WITH 10 ML NORMAL SALINE. IV DRESSING IS CLEAN, DRY, AND INTACT. NEW BAG OF LR IS INFUSING AT 100 ML/HR WITH NEW TUBING. SKIN ASSESSMENT COMPLETE WITH ELMO MCGINNIS RN. 3 BLISTERS NOTED ON THE PATIENT BACK. YELLOW DRAINAGE NOTED ON THE CHUX. BRUISES NOTED TO THE PATIENTS FACE, FOREHEAD, LEFT ARM, AND LEFT HAND. REDDENED AREA NOTED ON THE BILATERAL HEELS. PATIENT STATED NO FURTHER NEEDS AT THIS TIME. CALL LIGHT AND PERSONAL BELONGINGS ARE WITHIN REACH.
[2024-01-01] MEDS ORDERED: OXYCODONE/APAP 10/325 TAB PO PRN (09:30)
[2024-01-01] MEDS ORDERED: HYDROmorphone HCL 1 MG/ML SYR IV PRN (09:30)
--- NOTE | 2024-01-01 09:40 | NUR ---
PATIENT TAKEN OFF THE BED NEAL AT THIS TIME. NO BOWEL MOVEMENT. ONE UNMEASURED VOID. PATIENT BACK AND BUTTOCKS WIPED WITH BED BATH WIPES. AFSHIN CARE COMPLETE AND NEW PUREWICK IS IN PLACE. NEW BRIEF AND CHUX IN PLACE. PATIENT BREAKFAST TRAY REMOVED. PATIENT REPOSITIONED TO PROMOTE COMFORT. PATIENT WITH WARM BLANKET ON AND STATED NO FURTHER NEEDS AT THIS TIME. CALL LIGHT AND PERSONAL BELONGINGS ARE WITHIN REACH.
--- NOTE | 2024-01-01 10:48 | NUR ---
VITAL SIGNS AND INTAKE AND OUTPUT VALUES TAKEN AND ARE DOCUMENTED IN THE CHART. PATIENT STATED NO FURTHER NEEDS AT THIS TIME. PATIENT DINNER ORDER PLACED BY RN.
--- NOTE | 2024-01-01 11:58 | NUR ---
PATIENT IS LYING ON THEIR LEFT SIDE AND EATING LUNCH. PATIENT MEAL TRAY SITUATED TO MAKE EATING EASIER FOR THE PATIENT. WHEN ASKED ABOUT PAIN PATIENT STATED IT WAS 4/10 AND REFUSED PAIN MEDICATION WHEN OFERED. PATIENT STATED NO FURTHER NEEDS AT THIS TIME. CALL LIGHT AND PERSONAL BELONGINGS ARE WITHIN REACH.
[2024-01-01] MEDS ORDERED: POLYETHYLENE GLYCOL 3350 1 PACKET PO SCH (12:36)
[2024-01-01] MEDS ORDERED: SENNOSIDES/DOCUSATE 1 EA TAB PO SCH (12:37)
--- NOTE | 2024-01-01 14:21 | NUR ---
went to check on pt and introduce myself and pt is currently in room trying to have a bowel movement and said that she will call when she is done. no other cares needed at this time. call light within reach
--- NOTE | 2024-01-01 15:24 | NUR ---
pt states that pain is at a 5. pt also stated that she has to have a bowel movement since start of my shift at 1355 but still has no sign of bowel movement. Will continue to monitor and offer assistance. no other cares needed at this time.
--- NOTE | 2024-01-01 16:34 | NUR ---
pt urine cannister emptied. pt recieved 1mg dilaudid iv for pain before purwick change and possible bowel movement.
--- NOTE | 2024-01-01 17:35 | NUR ---
pt purwick changed and pt repositioned. wiped down skin and applied cream. pt tolerated as much as possible without excessive screaming. fluid changed and patient is currently eating. no other cares needed at this time. call light within reach
--- NOTE | 2024-01-01 19:15 | NUR ---
RECEIVED REPORT FROM DAY SHIFT RN. PATIENT IS RESTING IN BED. PATIENT DENIES ANY NEEDS AT THIS TIME. CALL LIGHT IN REACH.
--- NOTE | 2024-01-01 20:56 | NUR ---
PATIENTS VITALS TAKEN AND RECORDED. PATIENTS INTAKE AND OUTPUT RECORDED. PATIENTS PM MEDS GIVEN PER ORDER. PATIENT REPORTS 01/09 IN BILAT HIPS, PATIENT GIVEN PO PAIN MEDICATION PER ORDER. PATIENTS IV INFUSING PER ORDER. PATIENT REFUSES TO BE MOVED UNTIL PAIN MEDICATION IS IN EFFECT. PATIENT PROVIDED FRESH ICE WATER. PATIENT DENIES ANY FURTHER NEEDS. CALL LIGHT IN REACH.
--- NOTE | 2024-01-01 21:00 | NUR ---
PATIENT REPOSITIONED IN BED. PATIENT DID NOT TOLERATE ACTIVITY WELL. PATIENT RATES PAIN AT AN 8/10, PRN PAIN MEDICATION GIVEN PER ORDER. PATIENT DENIES ANY FURTHER NEEDS. CALL LIGHT IN REACH.
--- NOTE | 2024-01-01 22:13 | NUR ---
PATIENT IS RESTING IN BED WITH EYES CLOSED, RR 15. CALL LIGHT IN REACH. IV INFUSING PER ORDER.
--- NOTE | 2024-01-02 00:16 | NUR ---
PATIENTS PANNUS, AFSHIN AREA AN BUTTOCKS CLEANED. NEW PUREWICK IN PLACE. PATIENT YELLS AND SCREAMS WIH CARES. PATIENT UNABLE TO REPORT WHERE PAIN IS COMING FROM. THIS RN COMPLETED CARES AND OFFERED PATIENT PAIN MEDICATION. PATIENT STATED "I AM FINE IF YOU DONT TOUCH ME". NO FURTHER NEEDS NOTED. CALL LIGHT IN REACH.
--- NOTE | 2024-01-02 00:35 | NUR ---
PATIENT CAN BE HEARD MOANING FROM THE RN STATION. THIS RN IN ROOM TO ROUND ON PATIENT REPORTS 5/10 PAIN IN HER HIPS, RIGHT SHOULDER, AND LEFT FOOT, PRN PAIN MEDICATION GIVEN PER ORDER-SEE EMAR. NO FURTHER NEEDS NOTED. CALL LIGHT IN REACH.
[2024-01-02 02:50] VITALS: BP 135/90
--- NOTE | 2024-01-02 02:51 | NUR ---
PATIENTS VITALS TAKEN AND RECORDED. INTAKE AND OUTPUT RECORDED. PATIENT DENIES ANY NEEDS. CALL LIGHT IN REACH.
--- NOTE | 2024-01-02 04:00 | NUR ---
PATIENT IS RESTING IN BED WITH EYES CLOSED, RR 15. CALL LIGHT IN REACH. IV INFUSING PER ORDER.
[2024-01-02 06:12] VITALS: BP 135/83
--- NOTE | 2024-01-02 06:30 | NUR ---
PATIENTS VITALS TAKEN AND RECORDED. PATIENT INCONT OF URINE. AFSHIN CARE COMPLETED, NEW LARRY, ATTEND AND PUREWICK IN PLACE. PATIENT PAINFUL WITH CARE. PATIENT REPORTS IMPROVEMENT IN PAIN AFTER COMPLETION OF CARE AND DENIES THE NEED FOR PAIN MEDICATION AT THIS TIME. IV INFUSING PER ORDER. PATIENT REPOSITIONED IN BED PILLOWS UNDER BILAT HIPS. NO FURTHER NEEDS NOTED. CALL LIGHT IN REACH.
[2024-01-02 10:06] VITALS: BP 144/77
--- NOTE | 2024-01-02 10:11 | NUR ---
RECIEVED PT REPORT AT 0717 FROM NURSE. PT WAS SLEEPING AT THE TIME. EVEN AND UNL;ABORED BREATHING NOTED. PT IS CURRENTLY LAYING IN BED WATCHING TELEVISION AND MORNING MEDS AND CARES ARE COMPLETE. NO OTHER CARES NEEDED AT THIS TIME. CALL LIGHT WITHIN REACH
--- NOTE | 2024-01-02 11:24 | NUR ---
PHYSICAL THERAPY CAME AND ASKED PT IF SHE WOULD LIKE HIM TO WORK ON HER. PT STARTED TO CRY AND SAID THAT SHE NEEDED HER PAIN MEDS OF PERCOCET BUT IT ISN'T DUE FOR ANOTHER HOUR. I GAVE PT DILAUDID iv TO HELP WITH THE PAIN UNTIL HER PERCOCET COULD BE GIVEN SO THAT PHYSICAL THERAPY CAN WORK WITH HER. PT IS CURRENTLY IN BED WATCHING TV. NO OTHER CARES NEEDED OR REQUESTED AT THIS TIME CALL LIGHT WITHIN REACH
--- NOTE | 2024-01-02 13:46 | NUR ---
PT IS CURRENTLY IN BED RESTING WITH EYES CLOSED. EVEN AND UNLABORED BREATHING NOTED. NO OTHER CARES NEEDED AT THIS TIME CALL LIGHT WITHIN REACH
[2024-01-02 13:48] VITALS: BP 140/64
--- NOTE | 2024-01-02 19:41 | NUR ---
REPORT RECEIVED FROM DAY SHIFT RN. PT LYING IN BED ALERT AND ORIENTED. FRESH WATER PROVIDED. DENIES FURTHER NEEDS. WHITE BOARD UPDATED. CALL LIGHT IN REACH.
[2024-01-02 21:08] VITALS: BP 133/68
--- NOTE | 2024-01-02 21:56 | NUR ---
EVENING ASSESSMENT COMPLETE. SCHEDULED MEDS ADMIN PER EMAR. IV ABX INFUSING PER ORDER. VS AND I&O OBTAINED. PT LYING ON LEFT SIDE. REPORTS HIP PAIN. REFUSES TO BE REPOSITIONED AT THIS TIME. PUREWICK IN PLACE. ATTENDS DRY. TELE #[address] SR. HR 90'S. PT DENIES FURTHER NEEDS. CALL LIGHT IN REACH.
--- NOTE | 2024-01-02 22:49 | NUR ---
PT HEARD MOANING FROM RN STATION. REPORTS BILAT HIP PAIN 01/09. PRN FOR PAIN ADMIN PER EMAR.
--- NOTE | 2024-01-03 00:23 | NUR ---
PT RESTING IN BED WITH EYES CLOSED. RESPIRATIONS EVEN. CALL LIGHT IN REACH.
[2024-01-03 02:17] VITALS: BP 120/78
--- NOTE | 2024-01-03 02:46 | NUR ---
VS AND I&O OBTAINED. PT REPOSITIONED WITH PILLOWS. PRN FOR 6/10 HIP PAIN ADMIN PER EMAR. NEW BAG IVF INFUSING PER ORDER. PUREWICK PATENT WITH QS YELLOW URINE. NO FURTHER NEEDS.
--- NOTE | 2024-01-03 04:28 | NUR ---
PT RESTING IN BED WITH EYES CLOSED. RESPIRATIONS EVEN. CALL LIGHT IN REACH.
[2024-01-03 06:22] VITALS: BP 133/71
--- NOTE | 2024-01-03 06:47 | NUR ---
PT RESTING WITH EYES CLOSED. AWAKENS EASILY. VS AND I&O OBTAINED. PT REPORTS BILAT HIP PAIN 02/08. PRN FOR PAIN ADMIN PER EMAR. PT INCONTINENT OF BM. CLEAN BRIEF AND BARRIER CREAM IN PLACE. CLEAN PUREWICK PLACED AFTER AFSHIN CARE. PT REPOSITIONED WITH PILLOWS. PT ANXIOUS AND TEARFUL WITH CARES. PT ABLE TO ASSIST SOMEWHAT WITH TURNING IN BED. NO FURTHER NEEDS. CALL LIGHT IN HAND.
--- NOTE | 2024-01-03 07:10 | NUR ---
Pt report received from BALAJI Tsang. Pt is resting supine in bed, awake, watching television. Board updated.
[2024-01-03] MEDS ORDERED: OXYCODONE HCL 5 MG TAB PO PRN (09:45)
[2024-01-03 09:48] VITALS: BP 125/71
--- NOTE | 2024-01-03 11:14 | NUR ---
Received call from Amber at [facility]. Unable to accept patient due to staffing issues and bed availability.
--- NOTE | 2024-01-03 11:57 | NUR ---
SPOKE WITH PATIENT. INFORMED HER [facility]. DISCUSSED [facility] WITH PATIENT. CONTINUES TO REFUSE [facility]. STATES IT IS "TOO FAR." WILLING TO GO TO [facility] IF THEY HAVE A BED. CHART FAXED TO [facility].
--- NOTE | 2024-01-03 12:40 | NUR ---
In with pt to administer pain meds. Pt reports pain is a 6 out of 10 after I woke her to ask her. Pt was sleeping quietly before I came in. Pt lifted her right arm and immediately cried out and began crying. I placed a pillow under her right arm for comfort. She was able to calm herself quickly and swallow the two tabs of oxycodone for pain. Side rails up x4, call light and bedside table in reach. Denies further needs at this time.
--- NOTE | 2024-01-03 12:49 | NUR ---
RECEIVED CALL FROM ELIZA AT [facility], UNABLE TO ACCEPT PATIENT DUE TO INSURANCE. CALLED AND LEFT MESSAGE FOR TYRA AT [facility]. CHART FAXED. ATTEMPT TO CALL SUPRIYA AT [facility], NO ANSWER. CHART FAXED TO [facility]. BOTH FACILITIES UNABLE TO ACCEPT PATIENTS LAST WEEK DUE TO STAFFING OR BED AVAILABILITY. WILL FOLLOW-UP ON THIS TODAY AND ATTEMPT TO FIND SNF FOR PATIENT.
[2024-01-03 13:39] VITALS: BP 122/60
--- NOTE | 2024-01-03 14:29 | NUR ---
Spoke with Jihan at [facility]. [facility] Planning meeting is tomorrow and she will talk to case management after regarding potential open beds. REmains without open beds at this time.
--- NOTE | 2024-01-03 14:43 | NUR ---
UR CONCURRENT REVIEW: CONCURRENT REVIEW COMPLETED. PATIENT MEETS GUIDELINE DAY 2. ATTEMPTING TO PLACE PATIENT TO SNIF. WILL DISCUSS FURTHER DISCHARGE WITH MD AND CASE MANAGEMENT.
[2024-01-03 18:04] VITALS: BP 134/77
--- NOTE | 2024-01-03 18:19 | NUR ---
Pt has only requested pain meds first thing this shift, and was given tylenol (per emar), then later 10mg of oxycodone (per emar) around 1230 hours. She tolerated sammy care well, under the circumstances, and cried out or cried continuously, but before it was started, she verbalized her understanding that movement is going to hurt because she doesn't move often. Noted a new "raw spot" on her mid upper back where her skin seems to be peeling a bit and was red, possibly from the draw sheet being wrinkled beneath her and because she is also sweaty on her back and anywhere her skin touches other areas of skin. Pt u/o is sufficient, urine is yellow and seems a little cloudy. Pt worked with physical therapy this morning and was tearful afterwards. Pt cries out in pain any time we enter the room or starts to cry. When left alone, or when asked questions, she calms herself rather quickly. Pt has been encouraged and praised for efforts.
--- NOTE | 2024-01-03 19:40 | NUR ---
REPORT RECEIVED FROM DAY SHIFT RN. PT LYING IN BED MOANING. REPORTS HIP PAIN 02/08. PRN FOR PAIN ADMIN PER EMAR. NO FURTHER NEEDS. WHITE BOARD UPDATED. CALL LIGHT IN REACH.
[2024-01-03 20:22] VITALS: BP 145/74
--- NOTE | 2024-01-03 20:50 | NUR ---
EVENING ASSESSMENT COMPLETE. SCHEDULED MEDS ADMIN PER EMAR. IV ABX INFUSING PER ORDER. 2PA TO REPOSITION IN BED WITH PILLOWS. PT TEARFUL AND CRYING OUT WITH CARES. PUREWICK PATENT WITH YELLOW URINE. TEMP 99.6. AFTER MOVEMENT TEMP 97.9. PT DENIES FURTHER NEEDS. CALL LIGHT IN REACH.
--- NOTE | 2024-01-03 23:45 | NUR ---
PT HEARD MOANING FROM NURSES STATION. REPORTS BILAT HIP PAIN 02/08. PRN FOR PAIN ADMIN PER EMAR. FRESH WATER PROVIDED. NO FURTHER NEEDS.
[2024-01-04 02:19] VITALS: BP 121/79
--- NOTE | 2024-01-04 02:25 | NUR ---
VS OBTAINED, WNL. PT REPORTS SHE IS COMFORTABLE AT THIS TIME. DENIES NEEDS. CALL LIGHT IN REACH.
--- NOTE | 2024-01-04 05:00 | NUR ---
CALL LIGHT ANSWERED. PT REPORTS BILAT HIP PAIN 02/08. PRN FOR PAIN ADMIN PER EMAR.
[2024-01-04 05:57] VITALS: BP 140/73
--- NOTE | 2024-01-04 06:57 | NUR ---
VS AND I&O OBTAINED. PT INCONTINENT OF MEDIUM SIZE SOFT BM. AFSHIN CARE DONE. NEW PUREWICK PLACED. 2PA TO REPOSITION WITH PILLOWS. NO FURTHER NEEDS.
--- NOTE | 2024-01-04 07:18 | NUR ---
Pt report received from BALAJI Bates. Pt is resting in bed, television on, A&O, side rails up x4, call light in reach. Board updated.
--- NOTE | 2024-01-04 08:07 | NUR ---
PATIENT IN BED AT THIS TIME. PUREWICK TUBING WAS NOT ATTATCHED TO CANISTER, CURRICULUM SPECIALIST CHECKED TO MAKE SURE THAT PATIENTS BRIEF WAS DRY AND THEN CURRICULUM SPECIALIST ATTATCHED TUBE TO PUREWICK CANISTER. CALL LIGHT WITHIN REACH, NO FURTHER NEEDS AT THIS TIME.
--- NOTE | 2024-01-04 08:30 | NUR ---
Pt was discussed in IDT with Dr. Aranda and staff. Pt has met criteria for dc per . Per staff, pt not wanting to go to a SNF out of town. Will fu with SNFS in our area, pt will need to dc as soon as a bed is found to whichever SNF has a bed open.
--- NOTE | 2024-01-04 09:00 | NUR ---
Texted Jihan at [facility] and let her know I received report they are having a meeting a 8 am for discharges. Asked if she could let me know if they do have a bed open. Jihan replied they are having a meeting, but its not until noon. She will let me know if they plan to dc any pts today.
--- NOTE | 2024-01-04 09:26 | NUR ---
Spoke with Tamra from [facility]. They are evaluating this pt for placement. She had questions from her DNS. They will let us know. PT/OT/Progress note from yesterday faxed.
[2024-01-04 09:31] VITALS: BP 120/68
--- NOTE | 2024-01-04 10:54 | NUR ---
Patient has been in house for 7 days. She is on a regular diet and has a decent appetite. She states she doesn't like chicken marsala or pasta dishes. Different lunch order is in for today. Regular menu is on her bedside table. She doesn't need any nutrition intervention at this time. Dietary staff will continue to monitor food preferences. RD will follow up in 7 days if patient is still here.
--- NOTE | 2024-01-04 11:41 | NUR ---
IN WITH PHYSICAL THERAPY AROUND 1000 HOURS TO PERFORM CARE FOR PATIENT THEY ARE WORKING WITH HER. PT WAS ASSISTED TO A SITTING POSITION AT THE EDGE OF THE BED AND ENCOURAGED/ASSISTED TO LIFT/STAND USING THE SIT TO STAND MUCH SHE IS ABLE IN ORDER TO ALLOW FOR LINEN CHANGE, WHICH WAS DONE. PT TOLERATED ACTIVITY WELL AND FOLLOWED COMMANDS WELL. AFSHIN CARE PERFORMED, PUREWICK CHANGED, AND LOTION APPLIED TO DRY AREAS OF SKIN, BARRIER CREAM APPLIED TO AFSHIN AREA. YESTERDAY, DAY SHIFT, PT WAS ENCOURAGED, SEVERAL TIMES, TO ALLOW US TO HELP HER UP TO THE WHEELCHAIR, OR TO THE CHAIR, BUT SHE REFUSED. WILL CONTINUE TO ENCOURAGE HER TO ALLOW US TO HELP HER UP TO THE CHAIR USING THE SIT TO STAND OR USING A BUZZ IF NEEDED. THE PT'S SKIN WHERE IT IS TOUCHING OTHER AREAS OF HER BODY, OR HER BACK WHERE SHE IS LAYING ON IT, IS SWEATY AND SEEMS TO BE CAUSING SOME POTENTIAL BREAKDOWN. WHILE SHE WAS SEATED AT THE EDGE OF THE BED, I PERFORMED A THOROUGH BED BATH AND ALLOWED THE AREAS CLEANED TO DRY, INCLUDING HER BACK. THE PATIENT'S HAIR IS VERY THICK, CURLY, AND TANGLED AND SHE REFUSED A SHAMPOO CAP. AFTER PHYSICAL THERAPY FINISHED AND ASSISTED WITH GETTING THE PT BACK INTO BED AND COMFORTABLE, AT PT'S REQUEST I APPLIED LOTION TO BOTH OF HER HANDS AND ARMS. I PROVIDED THE PT WITH A SHEET TO COVER UP AND A FAN WELL A COOL WASH CLOTH BECAUSE SHE SAID SHE GETS HOT. WHEN TOLD BY PHYSICAL THERAPY THAT SHE NEEDS TO HAVE A "BOOT" ON HER LEFT FOOT TO ASSIST IN KEEPING HER HEEL OFF OF HER OTHER LEG TO PREVENT SKIN BREAKDOWN, SHE STARTED CRYING STATING THAT SHE DOESN'T WANT THE "BOOT" ON BECAUSE SHE DOESN'T WANT TO GET HOT. PT WAS PRAISED AND ENCOURAGED FOR HER EFFORTS. SIDE RAILS UP X4, CALL LIGHT IN REACH. PT'S SISTER ARRIVED TO VISIT. VERBAL ORDER RECEIVED FROM DR. POSADAS TO APPLY AN "INNER DRY" UNDER THE PT'S PANNUS.
--- NOTE | 2024-01-04 12:29 | NUR ---
PT CALLED SAID SHE HAD A BM. BAND AID MACHINE OPERATOR CAME IN THE ROOM TO HELP ME. PT WAS IN TOO MUCH PAIN HAD TO CALL NURSE IN AND OTHER BAND AID MACHINE OPERATOR TO HELP. CHANGED PUREWICK AND WIPED HER BACK FOR COMFORT CARE. NURSE STAYED IN ROOM AND WAS WITH PHYSICAL THERAPIST AND THEY DIDNT NEED OUR HELP.
--- NOTE | 2024-01-04 13:14 | NUR ---
PATIENT IN BED AT THIS TIME. CALL LIGHT WITHIN REACH, NO FURTHER NEEDS AT THIS TIME.
[2024-01-04 13:56] VITALS: BP 126/79
--- NOTE | 2024-01-04 14:00 | NUR ---
Spoke with Josefa and update, [facility] has a bed open. They have submitted for auth to her insurance. They will let us know when they have auth. Kimberley from [facility] is planning for admit tomorrow if auth is received.
--- NOTE | 2024-01-04 17:01 | NUR ---
PT REPORTS SHE "THINKS" SHE HAD A BM. 3 PERSONS IN TO PERFORM AFSHIN CARE AND BRIEF CHANGE, PUREWICK WAS ALSO REPLACED AT THIS TIME. PT WAS CLEANED, DRIED, AND BARRIER CREAM APPLIED, CLEAN BRIEF APPLIED. PT TOLERATED ACTIVITY WELL (SHE DOES CRY OUT BUT SHE DID VERY WELL ATTEMPTING TO BREATHE SLOWLY AND CALM HERSELF). REINFORCED EDUCATION ON SKIN BREAKDOWN AND THE IMPORTANCE OF KEEPING HER HEEL OFF OF HER OPPOSITE LEG TO PREVENT THIS (HER HEELS ARE RED AND SHE GETS VERY DIAPHORETIC WHEN HER SKIN IS TOUCHING OTHER AREAS OF SKIN). THE PT'S SKIN HAS SPLOTCHY WELTS IN VARIOUS SPOTS ON HER BACK, SHE STATES HER BACK ITCHES BUT FEELS BETTER WHEN WE USE THE BATH WIPES TO RUB HER BACK. IV SITE IS PATENT, DRESSING INTACT, QUESTIONS ANSWERED, PT COVERED WITH A SHEET, DECLINED A FAN AND COOL CLOTH, REFUSES HEEL PROTECTORS. SIDE RAILS UP X4, BEDSIDE TABLE IN REACH, CALL LIGHT AND ROOM TELEPHONE IN REACH.
--- NOTE | 2024-01-04 17:47 | NUR ---
Pt seemed to be more determined to assist herself with physical therapy this shift. She still cries and cries out randomly, or when she moves or is barely touched, but after physical therapy worked with her and explained to her what they needed her to do and why, she seemed to work harder and focusing on her breathing and moving her limbs more herself. The pt was able to lift her bottom off the bed, briefly, while holding on to the [id number] with PT/OT at her sides so that the draw sheet and chux could be changed, and she worked with HUMBERTO Keen on straightening her left leg out while dangling at the edge of the bed. Pt was able to sit up on her own at the edge of the bed for about 30 minutes while PT worked with her legs and she received a bed bath and back rub. Pt had two medium sized soft BMs this shift and the purewick was last changed at about 1645 hours. She has complained of being "itchy" on her sides and back and it has been noted that she has splotchy areas on her back. Her heels continue to be red and are blanchable. An area of bruising at the base of her buttocks and upper inner thighs was noted and the pt believes it was from when she fell down at home. The pt has received 10mg oxycodone twice this shift with the last dose being around 1415 hours. Telemetry and IVF were d/c'd this shift. Pt's sister came to visit her twice today.
[2024-01-04 17:54] VITALS: BP 133/64
--- NOTE | 2024-01-04 18:21 | NUR ---
PATIENT IN BED AT THIS TIME. VITALS AND I&O'S CHARTED. CALL LIGHT WITHIN REACH, NO FURTHER NEEDS AT THIS TIME.
--- NOTE | 2024-01-04 18:41 | NUR ---
2 CNAS AND RN WENT IN TO DO AFSHIN CARE. PUREWICK WAS CHANGED AT 1630. PATIENT HAD BOWEL MOVEMENT AT THIS TIME. CALL LIGHT WITHIN REACH, NO FURTHER NEEDS AT THIS TIME.
--- NOTE | 2024-01-04 19:22 | NUR ---
REPORT RECEIVED FROM DAY SHIFT RN. PT LYING IN BED ALERT AND ORIENTED. DENIES NEEDS. WHITE BOARD UPDATED. CALL LIGHT IN REACH.
--- NOTE | 2024-01-04 20:05 | NUR ---
PT INCONTINENT OF SMALL AMOUNT BM. AFSHIN CARE DONE. CLEAN ATTENDS AND LINENS PLACED. PT TEARFUL AND CRYING OUT WITH CARES. SOMEWHAT ABLE TO ASSIST WITH BODY POSITIONING WHEN ENCOURAGED. NEW PUREWICK IN PLACE. FRESH WATER PROVIDED. NO FURTHER NEEDS.
[2024-01-04 20:42] VITALS: BP 124/71
--- NOTE | 2024-01-04 20:50 | NUR ---
EVENING ASSESSMENT COMPLETE. SCHEDULED MEDS ADMIN PER EMAR. IV ABX INFUSING PER ORDER. NO C/O PAIN AT THIS TIME. PT DENIES NAUSEA. REPOSITIONED WITH PILLOWS FOR COMFORT. PUREWICK PATENT WITH DARK YELLOW URINE. PO INTAKE ENCOURAGED. PT DENIES FURTHER NEEDS. CALL LIGHT IN REACH.
--- NOTE | 2024-01-04 23:24 | NUR ---
CALL LIGHT ANSWERED. PT REPORTS HIP/KNEE PAIN 01/09. PRN FOR PAIN ADMIN PER EMAR.
--- NOTE | 2024-01-05 01:06 | NUR ---
CALL LIGHT ANSWERED. PT INCONTINENT SMALL AMOUNT BM. AFSHIN CARE DONE. BARRIER CREAM APPLIED TO AFSHIN AREA. CLEAN ATTENDS AND NEW PUREWICK IN PLACE. PT REPOSITIONED TO RIGHT SIDE WITH PILLOWS. NO FURTHER NEEDS.
--- NOTE | 2024-01-05 02:09 | NUR ---
PT INCONTINENT OF SMEAR BM. AFSHIN CARE DONE AND CLEAN ATTENDS PLACED. 2PA TO REPOSITION IN BED.
--- NOTE | 2024-01-05 05:20 | NUR ---
CALL LIGHT ANSWERED. PT REPORTS BILAT HIP PAIN 01/09. PRN FOR PAIN ADMIN PER EMAR.
[2024-01-05 06:18] VITALS: BP 116/79
--- NOTE | 2024-01-05 06:46 | NUR ---
PT INCONTINENT OF SMALL AMOUNT BM. AFSHIN CARE DONE. CLEAN ATTENDS AND PUREWICK IN PLACE. 2PA TO REPOSITION IN BED. VS AND I&O OBTAINED. NO FURTHER NEEDS. CALL LIGHT IN REACH.
--- NOTE | 2024-01-05 07:36 | NUR ---
REPORT RECEIVED FROM BALAJI BROOKS.
--- NOTE | 2024-01-05 08:11 | NUR ---
PT ASSESSED ON THE FRONT. REFUSED TO ALLOW LEFT LEG TO BE REPOSTIONED OR PLACED ON PILLOW. FOOT IS RED, RASH, AND UNDER OTHER LEG WITH CLOTH BETWEEN TO AVOID SKIN\SKIN CONTACT. PT HYPEREMOTIONAL WITH ALL INTERACTION. ALLOWED FLUSHING OF IV AND STATED IT HAS NOT BOTHERED HER.
[2024-01-05] MEDS ORDERED: bisacodyL 10 MG SUPP PR ONE (08:45)
--- NOTE | 2024-01-05 09:20 | NUR ---
VISITED DURING SPIRITUAL CARE ROUNDS. PT TEARFUL BUT UNWILLING TO TALK, TURNING AWAY, INDICATED DESIRE FOR SOLITUDE. I RESPECTED PT WISHES AND EXITED ROOM, PROVIDED PRAYER, REPORTED PT CONDITION TO BALAJI PALMER WHO INDICATED NURSING STAFF WAS AWARE.
--- NOTE | 2024-01-05 09:26 | NUR ---
[facility] CALLED AND THE PATIENT CAN GO TO SNF TODAY AT 2PM. BOILER/CHILLER TECHNICIAN WILL UPDATE PATIENT,,INVENTORY SPECIALIST AND ALSO CALLED THE [facility].
--- NOTE | 2024-01-05 09:28 | NUR ---
PLACED SUPPOSITORY. PT CRIED OUT BUT IS NORMAL FOR HER. CHECKED AGAIN SHE FELT IT CAME OUT. METABOLIC SPECIALIST IN ROOM TO WORK WITH PT, REFUSED FOR NOW.
[2024-01-05 09:56] VITALS: BP 129/82
--- NOTE | 2024-01-05 09:56 | NUR ---
CHANGED PT OF SMEAR OF STOOL. PT "TRIED TO PUSH" , HAS HARD STOOL AT RECTUM.
[2024-01-05] MEDS ORDERED: DOXYCYCLINE HY100 MG PO (10:50)
[2024-01-05] MEDS ORDERED: OXYCODONE HCL5 MG PO (11:01)
[2024-01-05] MEDS ORDERED: LORAZEPAM1 MG PO (11:04)
--- NOTE | 2024-01-05 11:35 | NUR ---
MD ORDERS SENT TO [facility] FOR SNF TO REVIEW. PATIENT WILL GO BY [facility] AT 2PM TODAY. PATIENT'S SISTER CALLED AND UPDATED.
--- NOTE | 2024-01-05 12:15 | NUR ---
PT SITTING UP IN CHAIR WATCHING TV, JUST FINISHED LUNCH. PT C/O PAIN, MEDS GIVEN ORDERED. CALL LIGHT WITHIN REACH.
--- NOTE | 2024-01-05 12:40 | NUR ---
PT REMAINS UP IN CHAIR. SISTER IN ROOM TO TAKE HER OWN WHEELCHAIR HOME PT STATES IT HURTS HER HIP. WILL BE SENDING TO [facility] IN ONE OF OUR TRANSPORT CHAIRS.
--- NOTE | 2024-01-05 14:13 | NUR ---
PATIENT WILL BE GOING TO [facility] BY AMBULANCE BECAUSE OF CHRONIC PAIN. PATIENT UNDERSTANDS SHE MAY HAVE TO PAY FOR THE BILL. PATIENT YUDELKA ON AND OFF DURING THE HVAC TECHNICIAN RESIDENTIAL'S DICUSSION WITH IS NORMAL FOR THE PATIENT.
--- NOTE | 2024-01-05 14:24 | NUR ---
CALLED REPORT TO [facility]. ANSWERED ALL QUESTIONS. ALSO GAVE BRIEF REPORT TO EMS.
== END 2024-01-05 14:21 | DRG 603 ==
LOC: ED 19:26 → MS 19:28
PROVIDERS: Internal Medicine; ADMIT Family Medicine; ATTEND Family Medicine
DX: L03.317 Cellulitis of buttock (principal); Z68.41 Body mass index [BMI] 40.0-44.9, adult; E66.01 Morbid (severe) obesity due to excess calories; M16.0 Bilateral primary osteoarthritis of hip; L89.322 Pressure ulcer of left buttock, stage 2; E78.00 Pure hypercholesterolemia, unspecified; R00.0 Tachycardia, unspecified; E27.8 Other specified disorders of adrenal gland; E83.42 Hypomagnesemia; Z86.73 Personal history of transient ischemic attack (TIA), and cerebral infarction without residual deficits; Z91.81 History of falling
CPT/HCPCS: 36415; 71045; 73030; 73721; 74177; 80048; 80053; 81001; 83605; 83735; 84100; 85025; 87040; 93971; 94762; 97110; 97112; 97162; 97166; 97530; 97535; A9270; G0378; J0878; J1170; J1650; J3475; J7121; Q9967

== ENCOUNTER 2025-02-02 23:41 | Inpatient (IN) | payer OTHER ==
[~2025-02-02] VITALS: Ht 160 cm; Wt 101.5 kg
[~2025-02-02 23:41] MED LIST changes: +DOXYCYCLINE HY100 MG PO; +LORAZEPAM1 MG PO; +OXYCODONE HCL5 MG PO; +TART CHERRY CA1 EACH PO
[2025-02-02] MEDS ORDERED: FAMOTIDINE 20 MG/ 2 ML VIAL IV ONE (23:45)
[2025-02-02] MEDS ORDERED: LACTATED RINGER'S 1,000 ML IV ONE (23:45)
[2025-02-03] VITALS (20 sets, daily range): BP systolic 107–186; BP diastolic 59–108
[2025-02-03 00:02] LABS: BASOPHILS 0.4 % (0.1-1.2); EOSINOPHILS 0 % (0.7-5.8); LYMPHOCYTES 5.2 % (19.3-51.7); MCH 31.4 PG (25.6-32.2); MCHC 33.3 g/dL (32.2-35.5); MCV 94.1 fL (79.4-94.8); MONOCYTES 5.8 % (4.7-12.5); NEUTROPHILS 88.0 % (34.0-71.1); RBC 4.75 M/uL (3.93-5.22)
[2025-02-03 00:17] LABS: ALT (SGPT) 30.0 U/L (14-59); AST (SGOT) 25.0 U/L (15-37); GLOMERULAR FILTRATION RATE,EST 72.0 mL/min (>60); PROTEIN, TOTAL 7.7 g/dL (6.4-8.2); UREA NITROGEN 15.0 mg/dL (7-18)
[2025-02-03 01:09] LABS: ERYTHROCYTE SEDIMENTATION RATE 33
[2025-02-03] MEDS ORDERED: OXYCODONE HCL 5 MG TAB PO ONE (01:45)
[2025-02-03] MEDS ORDERED: ETOMIDATE 40 MG/20 ML VIAL IV ONE (03:30)
[2025-02-03] MEDS ORDERED: HYDROmorphone HCL 1 MG/ML SYR IV ONE (03:45)
[2025-02-03 04:29] LABS: BLOOD/HGB, URINE MODERATE (Negative); KETONE, URINE NEGATIVE (Negative); LEUK ESTERASE, URINE NEGATIVE (negative); NITRITE, URINE NEGATIVE (negative)
[2025-02-03] MEDS ORDERED: LIDOCAINE 2% VISCOUS 6 ML SYR TOP ONE (04:30)
[2025-02-03 04:43] LABS: LACTIC ACID, BLOOD 2.1 mmol/L (0.4-2.0)
[2025-02-03] MEDS ORDERED: LACTATED RINGER'S 1,000 ML IV ONE ×3 (04:45→12:30)
[2025-02-03 04:47] LABS: BACTERIA, URINE 1+ /hpf (negative); CASTS, URINE NONE SEEN \\lpf; CRYSTALS, URINE NONE SEEN (0-1+); EPITHELIAL CELLS, URINE SQUAMOUS 2+ /lpf (0-1+); REFLEX CULTURE, URINE No (No)
[2025-02-03 04:54] LABS: AMPHETAMINES, URINE NEGATIVE (NEGATIVE); BARBITURATES, URINE NEGATIVE (NEGATIVE); BENZODIAZEPINE, URINE NEGATIVE (NEGATIVE); CANNABINOID, URINE NEGATIVE (NEGATIVE); COCAINE, URINE NEGATIVE (NEGATIVE); ECSTASY, URINE NEGATIVE (NEGATIVE); FENTANYL, URINE NEGATIVE (NEGATIVE); METHADONE, URINE NEGATIVE (NEGATIVE); OPIATES, URINE POSITIVE (NEGATIVE); OXYCODONE, URINE POSITIVE (NEGATIVE); PHENCYCLIDINE, URINE NEGATIVE (NEGATIVE)
[2025-02-03] MEDS ORDERED: ACETAMINOPHEN 650 MG SUPP PR ONE (05:45)
[2025-02-03] MEDS ORDERED: DAPTOmycin 500 MG/10 ML VIAL IV ONE ×2 (06:30→09:15)
[2025-02-03] MEDS ORDERED: LACTATED RINGER'S 1,000 ML IV SCH (06:45)
[2025-02-03] MEDS ORDERED: PIPERACILLIN/TAZOBACTAM 4.5 GM in SODIUM CHLORIDE 0.9% 100 ML IV ONE (06:45)
[2025-02-03] MEDS ORDERED: ACETAMINOPHEN 325 MG TAB PO PRN ×2 (06:45→09:00)
[2025-02-03] MEDS ORDERED: HYDROmorphone HCL 1 MG/ML SYR IV PRN ×2 (06:45→15:30)
[2025-02-03] MEDS ORDERED: OXYCODONE HCL5 M2 PO (07:08)
[2025-02-03] MEDS ORDERED: SODIUM CHLORIDE 0.9% 1,000 ML IV PRN (07:15)
[2025-02-03 07:26] LABS: LACTIC ACID, BLOOD 3.4 mmol/L (0.4-2.0)
--- NOTE | 2025-02-03 07:30 | NUR ---
PT ARRIVES TO ROOM 128 VIA STRETCHER TRANSPORTED BY [facility]. PT ALERT AND ORIENTED, CALLS OUT IN PAIN WITH ANY MOVEMENT. TRANSFERED TO BED VIA SLIDER SHEET 3 PERSON ASSIST. INITIAL VS AND ASSESSMENT MEET SEVERE SEPSIS CRITERIA. 3RD LITER OF LR FINISHING INFUSION FROM ED, ZOYSN INFUSING WELL LF AT 125. IV SITES PATENT AND WNL X2. RIGHT HIP AND LATERAL THIGH BRIGHT RED, FIRM, AND HOT TO TOUCH, HOWEVER PT DENIES PAIN IN THIS AREA. ALL EXTREMETIES STIFF AND PT REFUSES MOVEMENT OF THEM. 7/10 PAIN REPORTED IN LEFT HIP AND KNEE, THIS IS THE SIDE PT INSISTS ON LAYING ON AND STATES SHE CAN NOT TOLERATE ANY OTHER POSISTION. REDNESS NOTED ON HEELS BILATERALLY AND OUTSIDE OF FOOT BED ON LEFT FOOT. TEARS NOTED IN GLUTEAL FOLDS BILATERALLY, YENNIFER IN COLOR, CRUSTED DRY SKIN, APPEAR CHRONIC IN NATURE, C/D/I ALLYVN FROM ED IN PLACE. PANIS AND UNDER BREASTS CLEANED, NO SKIN BREAKDOWN NOTED. BACK WIPED AND VISUALIZED, WITHOUT BREAKDOWN. PICTURES IN CHART. WAFFLE MATTRESS PLACED ON BED. PURWIK AND CLEAN ATTENDS PLACED.
--- NOTE | 2025-02-03 08:07 | NUR ---
CALLED [facility] FOR UPDATED MED LIST
--- NOTE | 2025-02-03 08:15 | EKG ---
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
[2025-02-03] MEDS ORDERED: ENOXAPARIN SODIUM 40 MG/0.4 ML SYR SUB-Q SCH (09:00)
--- NOTE | 2025-02-03 09:13 | NUR ---
PT RESTING ON LEFT SIDE IN BED WITH EYES CLOSED, RR EVEN AND UNLABORED. PT SHOWS NO SIGN OF DISTRESS WHILE RN NOT IN ROOM. PT QUICK TO MOAN AND YELL OUT WITH ANY STIMULUS. CALL LIGHT IN REACH.
--- NOTE | 2025-02-03 09:38 | NUR ---
VERBAL ORDER TO D/C REFLEX REPEAT LACTIC FROM ED ORDER - VIKAS FROM LAB NOTIFIED.
[2025-02-03] MEDS ORDERED: CLARITIN10 M2 PO (10:11)
[2025-02-03] MEDS ORDERED: VITAMIN D350 MC3 PO (10:13)
[2025-02-03] MEDS ORDERED: DULCOLAX10 MG PR (10:14)
[2025-02-03] MEDS ORDERED: OXYCODONE HCL 5 MG TAB PO PRN (10:15)
[2025-02-03] MEDS ORDERED: MORPHINE SULFATE 4 MG/ML VIAL IV PRN (10:15)
[2025-02-03] MEDS ORDERED: FLEET ENEMA133 ML PR (10:20)
[2025-02-03] MEDS ORDERED: TOPICAINE113 GM TOP (10:22)
[2025-02-03] MEDS ORDERED: LOPERAMIDE2 MG PO (10:23)
[2025-02-03] MEDS ORDERED: MILK OF MA400 MG/5 M PO (10:23)
[2025-02-03] MEDS ORDERED: SENNA8.6 MG PO (10:30)
[2025-02-03] MEDS ORDERED: ARTIFICIAL TEAR15 M6 OU (10:32)
[2025-02-03] MEDS ORDERED: ACETAMINOPHEN325 M1 PO (10:38)
--- NOTE | 2025-02-03 10:50 | NUR ---
PRN PAIN MEDICATION ADMINISTERED (PER EMAR) FOR 9 PAIN BILAT LOWER EXT. DISCUSSED MEDICATION USE TO HELP WITH OUTLINE R HIP AND TAKE PICTURES.
[2025-02-03] MEDS ORDERED: MIRALAX17 GM PO (10:57)
[2025-02-03] MEDS ORDERED: ONDANSETRON HCL4 MG PO (10:57)
--- NOTE | 2025-02-03 11:18 | NUR ---
medications reconciled using pharmacy records and MAR from [facility]
--- NOTE | 2025-02-03 11:20 | NUR ---
THIS RN, MALCOLM, RN, AND [facility]YS[facility] THER[facility]Y IN ROOM TO ROLL PT TO FOR OUTLING AND TAKING PICTURES OF R HIP. PT IS REFUSING TO COOPERATE IN MOVING. PT ALSO REFUSING TO STRAIGHTEN LEFT LEG TO HELP TAKE OFF PRESSURE. DISCUSSED WITH PT THE IMPORTANCE OF NEEDING TO DO THESE INTERVENTIONS IT WILL HELP WITH SEEING IF THE INFECTION IS SPREADING. PT REPOSITIONED AND TURNED 3PA. OUTLINED AND PICTURES TAKEN. PT REFUSED TO BE MOVED, BUT IT WAS ALSO DISCUSSED TO HAVE A PILLOW UNDER R LEG TO RELIEVE PRESSURE. WHEN FINISHED PT REFUSED TO BE MOVED OR SHIFTED AND WANTED TO BE LEFT ALONE. PT STATES SHE IS FINE IN THE CURRENT POSITION.
[2025-02-03] MEDS ORDERED: PHARMACY RENAL DOSE ADJUSTMENT 1 DOSE MISC PO SCH (12:00)
--- NOTE | 2025-02-03 12:06 | NUR ---
PT SISTER AT BEDSIDE TO VISIT - FURTHER INFORMATION OBTAINED ON PT HISTORY. SISTER STATES PT HAD "BIG STROKE SEVERAL YEARS AGO". STATES SOME RESIDUAL DEFICIT IN LOWER EXTREMTIES. SISTER ENDORSES PT DOES NOT MOVE MUCH AT [place] AND REMAINS IN BED, ONLY GETTING IN WHEELCHAIR TO LEAVE FACILITY RARLY. PT WAS LIVING WITH SISTER UNTIL FALL APPROX 1 YEAR AGO THAT RESULTED IN ADMISSION TO [facility]. FAN PROVIDED FOR PT PER REQUEST. CONTINUES TO REFUSE REPOSISTIONING.
--- NOTE | 2025-02-03 12:42 | NUR ---
DURING AFTERNOON ASSESSMENT. REDNESS ON R LEG HAS EXCEEDED PAST THE MARKINGS. SISTER AT BEDSIDE. CALL LIGHT IN REACH.
--- NOTE | 2025-02-03 13:24 | NUR ---
PT PROVIDED PUDDING TO EAT PER REQUEST. HOB ELEVATED TO DO SO, PT NOT TOLERATING IT. PT REFUSES REPOSISTIONING. ABLE TO FEED SELF. PT CONTINOUSLY MOANING IN ROOM AND SAYING "HELP ME" BUT DENIES ANYTHING OFFERED. SEE EMAR FOR PAIN MEDICATION ADMINISTRATION. CALL LIGHT IN REACH.
--- NOTE | 2025-02-03 13:48 | NUR ---
LR BOLUS COMPLETE. IV SITE WNL. HR REMAINS ELEVATED AT 125, BP ALSO INCREASING. PERSISTANT EXTREME PAIN IN LEFT HIP DESPITE IV MORPHINE. PT BOOSTED IN BED AND ROLLED SLIGHTLY TOWARDS BACK FROM DIRECT LEFT SIDE - PT DOES NOT TOLERATE ANY MOVEMENT, SCREAMING OUT IN PAIN. PT RETURNS TO RESTING QUIETLY WITH HER EYES CLOSED QUICKLY. CALL LIGHT IN REACH.
[2025-02-03] MEDS ORDERED: PIPERACILLIN/TAZOBACTAM 4.5 GM in SODIUM CHLORIDE 0.9% 100 ML IV SCH (14:00)
--- NOTE | 2025-02-03 15:18 | NUR ---
CALL PLACED TO MD TO UPDATE ON PT STATUS: HR 130'S SUSTAINED, HYPERTENSION 180S SYSTOLIC, INTRACTABLE HIP AND LEFT KNEE PAIN UNRELIEVED WITH ALL PRNS AVAILABLE. ORDERS RECEIVED AND ENTERED, RBOV.
[2025-02-03] MEDS ORDERED: IBUPROFEN 800 MG TAB PO ONE (15:30)
--- NOTE | 2025-02-03 16:20 | NUR ---
KNEE AND HIP XR COMPLETE - PT WAS MOSTLY NON COOPERATIVE WITH POSISTIONING FOR VIEWS, POOR QUALITY FILMS RESULT. CLEAN ATTENDS AND NEW PURWIK PLACED WITH REPOSISTIONING UP IN BED. PT DOES AGREE TO LAYING ON BACK, PILLOW UNDER LEFT HIP TO FLOAT. RIGHT HEEL FLOATED WITH PILLOW, PT REFUSES PRESSURE PREVENTION BOOTS. RATES PAIN 7/10, FALLS ASLEEP QUICKLY WHEN LEFT ALONE. PT TURNS ON TV BY SELF. CALL LIGHT AND TABLE IN REACH.
--- NOTE | 2025-02-03 17:08 | NUR ---
PT RESTING IN BED WITHOUT DISTRESS WITH EYES CLOSED, RR EVEN AND UNLABORED. HR AND BP IMPROVING, HOLDING IBP AND DILAUDID PRN DOSES AT THIS TIME. CALL LIGHT IN REACH.
--- NOTE | 2025-02-03 17:57 | NUR ---
UPDATED VIA TELEPHONE ON XR RESULTS AND PT ASSESSMENT. ORDERS ENTERED FOR ESR, CRP.
--- NOTE | 2025-02-03 18:45 | NUR ---
PT REMAINS RESTING IN BED IN MOSTLY SUPINE POSISTION WITH LEFT LEG FOLDED UP UNDER RIGHT UPPER THIGH. RR EVEN AND UNLABORED. CALL LIGHT IN REACH.
[2025-02-03] MEDS ORDERED: IBUPROFEN 800 MG TAB ONE (18:54)
--- NOTE | 2025-02-03 19:38 | NUR ---
BEDSIDE REPORT FROM MALCOLM Low RN. PATIENT ALERT TO STAFF AT BEDSIDE. MALCOLM RN AND ON COMMING RN'S AT BEDSIDE TO ASSESS SKIN UNDER PANUS AND RIGHT HIP RED OUTLINED. PATIENT SAYS VERBALIZED "OW" WITH ANY TOUCH TO LOOK UNDER PANUS AND RIGHT HIP. PATIENT WANTS BRIGHT LIGHT LEFT ON IN ROOM.
--- NOTE | 2025-02-03 19:40 | NUR ---
HOSPITALIST SPOKE WITH DR PERERA AT [facility]. DR RAMIREZ WILL HAVE THEIR HOSPITALISTS CALL AND SPEEK WITH HIM ABOUT BEING PRIMARY IF THEY ACCEPT PATIENT
--- NOTE | 2025-02-03 19:49 | NUR ---
PATIENT TALKING ON PHONE WITH HER SISTER AT THIS TIME.
--- NOTE | 2025-02-03 19:51 | NUR ---
HOSPITALIST REPORTS ANAND BEING ACEPTED AT [facility] UNDER CARE OF DR MASSEY.
--- NOTE | 2025-02-03 20:08 | NUR ---
THIS RN CALLED BRITT SISTER OF PATIENT PER HER REQUEST AT BEDSIDE TO EXPLAIN RESULTS AND CONCERNS OF IMAGING, AND REASON FOR NEED TO BE TRANSFERED TO HIGHER LEVEL OF CARE TO HAVE MRI AND ORTHO IF NEEDED AFTER FURTHER DX. BRITT SISTER OF PATIENT SAID, "THAT SOUNDS LIKE THAT IS WHAT SHE NEEDS TO DO." PATIENT NOW TALKING TO BRITT ON THE PHONE.
--- NOTE | 2025-02-03 20:14 | NUR ---
PLACED CALL TO [facility] TO REQUEST BLS TRANSFER. [facility] STATED "WE WILL CALL BACK IN 10 WE WILL LOOK FOR A CREW".
--- NOTE | 2025-02-03 20:25 | NUR ---
PATIENT ADMINISTERED 10MG PO OXYCODONE FOR PAIN ALL OVER AND RIGHT HIP OF 8/10. FRESH WATER PROVIDED. FOCUSED ASSESSMENT COMPLETED.
--- NOTE | 2025-02-03 20:40 | NUR ---
PLACED CALL TO IMAGING AND THEY ARE PUSHING IMAGES TO [facility]. PLACED CALL TO [facility] TO UPDATE ON PATIENT STATUS. REPORT GIVEN TO LAURIE CARPIO.
[2025-02-03] MEDS ORDERED: MICONAZOLE NITRATE 1 EA BTL TOP SCH (21:00)
[2025-02-03] MEDS ORDERED: MELATONIN 3 MG TAB PO SCH (21:00)
--- NOTE | 2025-02-03 21:15 | NUR ---
PATIENT OFF THE UNIT AT THIS TIME. PATIENT IS ALERT AND ORIENTED. MORPHINE PRN ADMINSITERED FOR PAIN 8/10 AT LEFT HIP/KNEE [facility].
--- NOTE | 2025-02-03 21:21 | NUR ---
PATIENT REPORT CALLED TO JW SOUSA RN AT [facility] AT THIS TIME. PROVIDED CALL BACK NUMBER FOR ANY FURTHER QUESTIONS. PROVIDED SISTER BRITT'S PHONE NUMBER AND REPORTED THAT SHE WOULD LIKE A CALL ONCE PATIENT IS SETTLED IN FOR AN UPDATE.
[2025-02-04] MEDS ORDERED: DAPTOmycin 500 MG/10 ML VIAL IV SCH ×2 (08:00→09:00)
== END 2025-02-03 21:15 | disposition short-term general hospital (02) | DRG 872 ==
LOC: ED 23:41 → CCU 02-03 06:34
PROVIDERS: Internal Medicine; ADMIT Student in an Organized Health Care Education/Training Program; ATTEND Student in an Organized Health Care Education/Training Program
DX: A41.9 Sepsis, unspecified organism (principal); L03.115 Cellulitis of right lower limb; E87.20 Acidosis, unspecified; E66.01 Morbid (severe) obesity due to excess calories; I10 Essential (primary) hypertension; E78.00 Pure hypercholesterolemia, unspecified; M10.9 Gout, unspecified; G89.29 Other chronic pain; K76.0 Fatty (change of) liver, not elsewhere classified; E27.8 Other specified disorders of adrenal gland; L89.329 Pressure ulcer of left buttock, unspecified stage; Z86.73 Personal history of transient ischemic attack (TIA), and cerebral infarction without residual deficits; Z99.3 Dependence on wheelchair; Z90.49 Acquired absence of other specified parts of digestive tract; Z98.891 History of uterine scar from previous surgery; Z79.891 Long term (current) use of opiate analgesic; Z79.899 Other long term (current) drug therapy
CPT/HCPCS: 36415; 51702; 71045; 73501; 73560; 74177; 80053; 80307; 81001; 82550; 83605; 83690; 83880; 84484; 85025; 85651; 86140; 93005; 93010; 97163; 99285-25; A9270; J0696; J0878; J1171; J1650; J1790; J2270; J2405; J2543; J7030; J7121; Q9967